=== PATIENT | male | born 1945 | race Caucasian/White ===

== ENCOUNTER 2017-03-31 12:38 | Inpatient (IN) | payer MEDICARE ==
[~2017-03-31] VITALS: Ht 175.3 cm; Wt 80.7 kg
[2017-03-31] VITALS (7 sets, daily range): BP systolic 90–169; BP diastolic 52–82; PULSE 54–86; RESP 18–20; TEMP 98.1–100; O2SAT 94–100
[2017-03-31] MEDS ORDERED: MORPHINE SULFATE 4 MG/ML INJ ONE ×3 (12:46→14:04)
[2017-03-31] MEDS ORDERED: IOHEXOL 350 MG/ML 10 ML VIAL (for RAD DIAG) IVCONTRAST ONE (13:00)
--- NOTE | 2017-03-31 13:02 | RADRPT ---
EXAM DATE/TIME: 03/31/2017 12:38 [facility] COMPARISON: No previous studies available for comparison. INDICATIONS : Trauma alert. MEDICAL HISTORY : None. SURGICAL HISTORY : None. ENCOUNTER: Initial ACUITY: 1 day PAIN SCORE: Non-responsive. LOCATION: Bilateral chest FINDINGS: Examination of the left shoulder demonstrates no evidence of fracture or dislocation.. Bone minerali zation is normal. The acromioclavicular joint is intact. No foreign body is identified. CONCLUSION: No acute disease. Shubham Hooker MD on March 31, 2017 at 12:59 Board Certified Radiologist. This report was verified electronically.
[2017-03-31 13:03] LABS: BASOPHIL # 0.1 TH/MM3 (0-0.2); BASOPHIL % 0.6 % (0.0-2.0); EOSINOPHIL # 0.2 TH/MM3 (0-0.4); EOSINOPHIL % 2.2 % (0.0-4.0); HEMATOCRIT 41.2 % (39.0-51.0); HEMO FLAGS DIFF FINAL; I-STAT POTASSIUM 3.8 MMOL/L (3.5-4.9); LYMPH % 18.1 % (9.0-44.0); MEAN CELL VOLUME 96.7 FL (80.0-100.0); MEAN CORPUSCULAR HEMOGLOBIN 32.6 PG (27.0-34.0); MEAN CORPUSCULAR HGB CONC 33.7 % (32.0-36.0); NEUT % 71.1 % (16.0-70.0); PLATELET COUNT 203 TH/MM3 (150-450); RED BLOOD COUNT 4.26 MIL/MM3 (4.50-5.90); RED CELL DISTRIBUTION WIDTH 12.8 % (11.6-17.2); WHITE BLOOD COUNT 11.3 TH/MM3 (4.0-11.0)
--- NOTE | 2017-03-31 13:03 | RADRPT ---
EXAM DATE/TIME: 03/31/2017 12:38 [facility] COMPARISON: SHOULDER LEFT (1 VW), March 31, 2017, 12:38. INDICATIONS : Trauma alert. MEDICAL HISTORY : None. SURGICAL HISTORY : None. ENCOUNTER: Initial ACUITY: 1 day PAIN SCORE: Non-responsive. LOCATION: Bilateral chest FINDINGS: A single view of the chest demonstrates the lungs to be symmetrically aerated without evidence of mas s, infiltrate or effusion. The cardiomediastinal contours are unremarkable. Degenerative changes are noted involving the right shoulder. CONCLUSION: 1. No acute cardiopulmonary disease. 2. Degenerative changes involving right shoulder. Shubham Hooker MD on March 31, 2017 at 13:00 Board Certified Radiologist. This report was verified electronically.
--- NOTE | 2017-03-31 13:04 | RADRPT ---
EXAM DATE/TIME: 03/31/2017 12:38 [facility] COMPARISON: No previous studies available for comparison. INDICATIONS : Trauma alert. MEDICAL HISTORY : None. SURGICAL HISTORY : None. ENCOUNTER: Initial ACUITY: 1 day PAIN SCORE: Non-responsive. LOCATION: Bilateral chest FINDINGS: There is no acute fracture or dislocation of the bony pelvis. Moderate degenerative changes are noted involving the hip joints bilaterally. Degenerative changes are also noted involving the lower lumbar spine. CONCLUSION: 1. No acute fracture or dislocation. 2. Moderate degenerative change involving the hip joints bilaterally. 3. Degenerative changes throughout the lower lumbar spine. Shubham Hooker MD on March 31, 2017 at 13:01 Board Certified Radiologist. This report was verified electronically.
[2017-03-31 13:10] LABS: APTT (PATIENT) 24.7 SEC (24.3-30.1); INTERNATIONAL NORMALIZED RATIO 1.2 RATIO
--- NOTE | 2017-03-31 13:20 | RADRPT ---
EXAM DATE/TIME: 03/31/2017 12:55 [facility] COMPARISON: No previous studies available for comparison. INDICATIONS : Fall 16 feet. Trauma alert. RADIATION DOSE: 60.16 CTDIvol (mGy) ; Tabletop CT Head MEDICAL HISTORY : Hypertension. SURGICAL HISTORY : ENCOUNTER: Initial ACUITY: 1 day PAIN SCALE: 10/10 LOCATION: cranial posterior TECHNIQUE: Multiple contiguous axial images were obtained of the head. Using automated exposure control and adj ustment of the mA and/or kV according to patient size, radiation dose was kept as low as reasonably a chievable to obtain optimal diagnostic quality images. DICOM format image data is available electro nically for review and comparison. FINDINGS: CEREBRUM: The ventricles are normal for age. No evidence of midline shift, mass lesion, hemorrhage or acute in farction. No extra-axial fluid collections are seen. POSTERIOR FOSSA: The cerebellum and brainstem are intact. The 4th ventricle is midline. The cerebellopontine angle i s unremarkable. EXTRACRANIAL: The visualized portion of the orbits is intact. Mucosal thickening is noted throughout the maxillary, frontal and ethmoid sinuses. SKULL: The calvaria is intact. No evidence of skull fracture. CONCLUSION: 1. No acute intracranial abnormality. 2. Mucosal thickening throughout the maxillary, frontal and ethmoid sinuses. Shubham Hooker MD on March 31, 2017 at 13:16 Board Certified Radiologist. This report was verified electronically.
--- NOTE | 2017-03-31 13:35 | PD ---
HPI Chief Complaint: Trauma (Alert) Time Seen by Provider: 12:47 Travel History International Travel<30 days: No Contact w/Intl Traveler<30days: No Traveled to known affect area: No History of Present Illness HPI Is an elderly man, fall from a ladder up at about 16 feet in the air. Positive LOC. Confused on scene. Complaining of left shoulder, left hip, and some head pain. He is on aspirin and Plavix. Awake and alert but continues to be confused in route. EMS palpated some deformity in his mid thoracic spine. Patient complains of little bit of paresthesias in his left arm. [facility] Past Medical History Narrative Medical CAD, on aspirin and Plavix, history of stent about a year or so ago Hypertension Hypertension: Yes ?: Not Past Surgical History Cardiac Surgery: Yes (STENT PLACED ) Other Surgery: Yes (RIGHT LEG ) Social History Alcohol Use: No (SIX PACK A DAY ) Tobacco Use: No Substance Use: No Allergies-Medications (Allergen,Severity, Reaction): Coded Allergies: No Known Allergies (Unverified , 03/31/17) Review of Systems Except as stated in HPI: all other systems reviewed are Neg Physical Exam Narrative GENERAL: Well-appearing elderly man, full spinal mobilization. SKIN: Focused skin assessment warm/dry. HEAD: Normocephalic. No palpable cephalhematomas or skull fractures. No lacerations. EYES: Pupils equal and round. No scleral icterus. No injection or drainage. ENT: No nasal bleeding or discharge. Mucous membranes pink and moist. NECK: Trachea midline. Cervical collar in place. No palpable step-offs or deformities in the C-spine. CARDIOVASCULAR: Regular rate and rhythm. No murmur appreciated. RESPIRATORY: No accessory muscle use. Clear to auscultation. Breath sounds equal bilaterally. GASTROINTESTINAL: Abdomen soft, non-tender, nondistended. Hepatic and splenic margins not palpable. MUSCULOSKELETAL: No obvious deformities. Pain in the left shoulder. A little bit tenderness over the left scapula. No other palpable deformities in the extremities. Full range of motion all 4 extremities. In the mid to lower thoracic spine there is some palpable contusion and swelling. NEUROLOGICAL: Awake and alert. No obvious cranial nerve deficits. Strength full and equal upper and lower extremities, although the left is difficult to test due to pain. Data Data Last Documented VS Vital Signs Date Time Temp Pulse Resp B/P (MAP) Pulse Ox O2 Delivery O2 Flow Rate FiO2 03/31/17 13:20 100 Room Air 03/31/17 13:15 98.1 86 18 169/82 (111) Orders Orders Morphine Inj (Morphine Inj) (03/31/17 12:46) I-Stat Profile (03/31/17 12:47) I-Stat Creatinine (03/31/17 12:47) Complete Blood Count With Diff (03/31/17 12:47) Prothrombin Time / Inr (Pt) (03/31/17 12:47) Act Partial Throm Time (Ptt) (03/31/17 12:47) Type And Screen (03/31/17 12:47) Chest, Single Ap (03/31/17 12:47) Pelvis, Ap Only (Routine) (03/31/17 12:47) Ct Brain W/O Iv Contrast(Rout) (03/31/17 12:47) Ct Cerv Spine W/O Contrast (03/31/17 12:47) Ct Abd/Pel W Iv Contrast(Rout) (03/31/17 12:47) Ct Thorax/ Chest W Iv Contrast (03/31/17 12:47) Ct Thor Spine W Iv Contrast (03/31/17 12:47) Ct Lumb Spine W Iv Contrast (03/31/17 12:47) Iv Access Insert/Monitor (03/31/17 12:47) Ecg Monitoring (03/31/17 12:47) Oximetry (03/31/17 12:47) Oxygen Administration (03/31/17 12:47) Shoulder, One View (03/31/17 ) Morphine Inj (Morphine Inj) (03/31/17 13:05) Iohexol 350 Inj (Omnipaque 350 Inj) (03/31/17 13:00) Labs Laboratory Tests Test 03/31/17 12:35 White Blood Count 11.3 TH/MM3 Red Blood Count 4.26 MIL/MM3 Hemoglobin 13.9 GM/DL Bedside Hemoglobin 13.3 G/DL Hematocrit 41.2 % Bedside Hematocrit 39.0 % Mean Corpuscular Volume 96.7 FL Mean Corpuscular Hemoglobin 32.6 PG Mean Corpuscular Hemoglobin Concent 33.7 % Red Cell Distribution Width 12.8 % Platelet Count 203 TH/MM3 Mean Platelet Volume 7.1 FL Neutrophils (%) (Auto) 71.1 % Lymphocytes (%) (Auto) 18.1 % Monocytes (%) (Auto) 8.0 % Eosinophils (%) (Auto) 2.2 % Basophils (%) (Auto) 0.6 % Neutrophils # (Auto) 8.0 TH/MM3 Lymphocytes # (Auto) 2.0 TH/MM3 Monocytes # (Auto) 0.9 TH/MM3 Eosinophils # (Auto) 0.2 TH/MM3 Basophils # (Auto) 0.1 TH/MM3 CBC Comment DIFF FINAL Differential Comment Prothrombin Time 12.0 SEC Prothromb Time International Ratio 1.2 RATIO Activated Partial Thromboplast Time 24.7 SEC Bedside Sodium 137 MMOL/L Bedside Potassium 3.8 MMOL/L Bedside Chloride 102 MMOL/L Bedside Blood Urea Nitrogen 15 MG/DL Bedside Creatinine 0.9 MG/DL Bedside Glucose 111 MG/DL [facility] Medical Screen Exam Complete: Yes Emergency Medical Condition: Yes Interpretation(s) Chest x-ray negative. Pelvis x-ray negative Left shoulder x-ray: Negative LABS: CBC unremarkable. Point of care chemistries are unremarkable. Coags are unremarkable. CT head: Negative. Mucosal thickening throughout the maxillary frontal and ethmoid sinuses. CT cervical spine: Acute fractures involving bilateral lamina of C2, as well as posterior spinous processes. C3 C4 C5 and C6. CT chest: 9 mm nodule in the lung bases. L1 compression fracture. CT abdomen and pelvis: L1 compression fracture comminuted fragments along the superior endplate. CT L-spine: CT thoracic spine: Differential Diagnosis Head injury, spinal injury, chest injury, abdominal pelvic injury Narrative Course Medical decision making This 81-year-old man, fall from a height, on aspirin and Plavix with positive LOC, concern for head bleed, back injury where he is deformity in the mid thoracic spine, or other abdominal injury. Looks overall well now. Check labs , CT imaging, reassess. Critical Care Narrative Aggregate critical care time was 40 minutes. Time to perform other separately billable procedures was not included in the critical care time. My time did not include minutes spent treating any other patients simultaneously or on activities that did not directly contribute to the patient's treatment. The services I provided to this patient were to treat and/or prevent clinically significant deterioration that could result in: , disability, worsening neurologic outcome, unrecognized spinal cord compression. I provided critical care services requiring my management, as noted below: Chart data review, documentation time, medication orders and management, vital sign assessments/reviewing monitor data, ordering and reviewing lab tests, ordering and interpreting/reviewing x-rays and diagnostic studies, care of the patient and discussion of the patient with the admitting physicians. Procedures Procedure Narrative Spoke with Dr. Mitchell, spoke with the neurosurgeon. Diagnosis Diagnosis: Primary Impression: Cervical spine fracture Additional Impression: Compression fx, lumbar spine Admitting Physician Requests: Admit Amado Greer MD Mar 31, 2017 13:35
--- NOTE | 2017-03-31 13:43 | RADRPT ---
EXAM DATE/TIME: 03/31/2017 13:03 [facility] COMPARISON: No previous studies available for comparison. INDICATIONS : Fall 16 feet, trauma alert. IV CONTRAST: 78 cc Omnipaque 350 (iohexol) IV ; Cumulative dose for multiple exams. ORAL CONTRAST: No oral contrast ingested. RADIATION DOSE: 18.00 CTDIvol (mGy) ; Combined studies - Thorax/Abdomen/Pelvis MEDICAL HISTORY : Hypertension. SURGICAL HISTORY : ENCOUNTER: Initial ACUITY: 1 day PAIN SCALE: 10/10 LOCATION: abdominal. TECHNIQUE: Volumetric scanning of the abdomen and pelvis was performed. Using automated exposure control and ad justment of the mA and/or kV according to patient size, radiation dose was kept as low as reasonably achievable to obtain optimal diagnostic quality images. DICOM format image data is available electro nically for review and comparison. FINDINGS: LOWER LUNGS: The visualized lower lungs are clear. LIVER: Homogeneous density without lesion. There is no dilation of the biliary tree. No calcified gallston es. SPLEEN: Normal size without lesion. PANCREAS: Within normal limits. KIDNEYS: Normal in size and shape. There is no mass, stone or hydronephrosis. ADRENAL GLANDS: Within normal limits. VASCULAR: There is no aortic aneurysm. BOWEL/MESENTERY: The stomach, small bowel, and colon demonstrate no acute abnormality. There is no free intraperitone al air or fluid. ABDOMINAL WALL: Within normal limits. RETROPERITONEUM: There is no lymphadenopathy. BLADDER: There some questionable wall thickening or trabeculations on multiple images of the bladder correlate for hematuria. REPRODUCTIVE: Within normal limits. INGUINAL: There is no lymphadenopathy or hernia. MUSCULOSKELETAL: There is a compression fracture of the L1 vertebral body. CONCLUSION: L1 compression fracture with comminuted fragments along the superior endplate. Solid unremarkable. So me trabeculations or bladder wall versus thickening correlate for hematuria. Amado Pineda MD on March 31, 2017 at 13:38 Board Certified Radiologist. This report was verified electronically.
--- NOTE | 2017-03-31 13:46 | RADRPT ---
EXAM DATE/TIME: 03/31/2017 12:55 [facility] COMPARISON: No previous studies available for comparison. INDICATIONS : Fall 16 feet, trauma alert. RADIATION DOSE: 21.64 CTDIvol (mGy) MEDICAL HISTORY : Hypertension. SURGICAL HISTORY : ENCOUNTER: Initial ACUITY: 1 day PAIN SCALE: 10/10 LOCATION: neck TECHNIQUE: Volumetric scanning of the cervical spine was performed. Multiplanar reconstructions in the sagittal, coronal and oblique axial planes were performed. Using automated exposure control and adjustment o f the mA and/or kV according to patient size, radiation dose was kept as low as reasonably achievable to obtain optimal diagnostic quality images. DICOM format image data is available electronically f or review and comparison. FINDINGS: There are acute fractures involving the bilateral lamina of C2 as well as the posterior spinous proce sses of C3, C4, C5 and C6. Diffuse cervical spondylosis is noted. There is no acute compression fract ure of the vertebral bodies or prevertebral soft tissue swelling. Severe bilateral foraminal narrowin g is noted at C3-4, C4-5, C5-6 and C6-7. Mild spinal stenosis is noted at C3-4, C4-5 and C5-6. CONCLUSION: 1. Acute fractures involving the bilateral lamina of C2 as well as the posterior spinous processes of C3, C4, C5 and C6. 2. Mild spinal stenoses at C3-4, C4-5 and C5-6. 3. Severe bilateral foraminal narrowing at C3-4, C4-5, C5-6 and C6-7. 4. Diffuse cervical spondylosis. Shubham Hooker MD on March 31, 2017 at 13:38 Board Certified Radiologist. This report was verified electronically.
--- NOTE | 2017-03-31 13:47 | RADRPT ---
EXAM DATE/TIME: 03/31/2017 13:03 [facility] COMPARISON: No previous studies available for comparison. INDICATIONS : Fall 16 feet, trauma alert. IV CONTRAST: 78 cc Omnipaque 350 (iohexol) IV ; Cumulative dose for multiple exams. RADIATION DOSE: 18.00 CTDIvol (mGy) ; Combined studies - Thorax/Abdomen/Pelvis MEDICAL HISTORY : Hypertension. SURGICAL HISTORY : ENCOUNTER: Initial ACUITY: 1 day PAIN SCALE: 10/10 LOCATION: mid back TECHNIQUE: Volumetric scanning of the chest was performed. Using automated exposure control and adjustment of t he mA and/or kV according to patient size, radiation dose was kept as low as reasonably achievable to obtain optimal diagnostic quality images. DICOM format image data is available electronically for review and comparison. Follow-up recommendations for detected pulmonary nodules are based at a minimum on nodule size and pa tient risk factors according to Fleischner Society Guidelines. FINDINGS: LUNGS: There is no consolidation or pneumothorax. 9 mm groundglass nodule right lung base needs to be follow ed. The findings described above include a newly detected solid pulmonary nodule of 8 mm or greater aver age diameter. Guidelines from the Fleischner Society for the follow-up and management of newly detect ed indeterminate pulmonary nodules in persons >34 years old depend on nodule size (average of length and width) and underlying risk factors (including smoking and other risk factors). Please consider t he following recommendations after clinical assessment of risk factors. For nodules >8 mm: In low risk patients, follow-up CT at approximately 3, 9, and 24 months. In high risk patients, dynam ic contrast-enhanced CT, PET, and/or biopsy. on an outpatient basis. PLEURA: There is no pleural thickening or pleural effusion. MEDIASTINUM: The heart and great vessels demonstrate no acute abnormality. There is no mediastinal or hilar lymph adenopathy. Very dense coronary atherosclerotic disease AXILLAE: Within normal limits. No lymphadenopathy. SKELETAL: L1 compression fracture. The rest of the thoracic spine is unremarkable. MISCELLANEOUS: The visualized upper abdominal organs demonstrate no acute abnormality. CONCLUSION: 9 mm groundglass nodule right lung base. Needs followup imaging based on smoking history and risk fac tors. L1 compression fracture which is known. Dense coronary atherosclerotic disease Amado Pineda MD on March 31, 2017 at 13:43 Board Certified Radiologist. This report was verified electronically.
--- NOTE | 2017-03-31 13:54 | RADRPT ---
EXAM DATE/TIME: 03/31/2017 13:03 [facility] COMPARISON: No previous studies available for comparison. INDICATIONS : Fall 16 feet, trauma alert. IV CONTRAST: 78 cc Omnipaque 350 (iohexol) IV ; Cumulative dose for multiple exams. RADIATION DOSE: CTDIvol (mGy) ; Reconstructed from previous dataset, no dose MEDICAL HISTORY : Hypertension. SURGICAL HISTORY : ENCOUNTER: Initial ACUITY: 1 day PAIN SCALE: 10/10 LOCATION: lower back TECHNIQUE: Volumetric scanning of the lumbar spine was performed. Multiplanar reconstructions in the sagittal, coronal and oblique axial planes were performed. Using automated exposure control and adjustment of the mA and/or kV according to patient size, radiation dose was kept as low as reasonably achievable t o obtain optimal diagnostic quality images. DICOM format image data is available electronically for review and comparison. FINDINGS: PARASPINAL SOFT TISSUES: Normal. LUMBAR CORD: Normal. DURAL SAC: Normal. L1-L2: There is a compression fracture of the L1 vertebral body. It is lost a third its original ante rior height measuring 1.9 cm anteriorly. Its 2.8 cm posteriorly. The fracture is comminuted along the superior endplate. The posterior vertebral body margin is intact. There is oblique fracture through the T12 spinous process and a small fracture through the left posterior process of L1. L2-L3: The disc, uncovertebral joints, central canal, foramina, and facets are normal. L3-L4: The disc, uncovertebral joints, central canal, foramina, and facets are normal. L4-L5: The disc, uncovertebral joints, central canal, foramina, and facets are normal. L5-S1: The disc, uncovertebral joints, central canal, foramina, and facets are normal. CONCLUSION: There is a compression fracture of the L1 vertebral body. It has lost a third its original anterior h eight, measuring 1.9 cm anteriorly. It is 2.8 cm posteriorly. The fracture is comminuted along the zhu perior endplate. The posterior vertebral body margin is intact. There is oblique fracture through the T12 spinous process and a small fracture through the left posterior process of L1. Amado Pineda MD on March 31, 2017 at 13:49 Board Certified Radiologist. This report was verified electronically.
--- NOTE | 2017-03-31 14:01 | RADRPT ---
EXAM DATE/TIME: 03/31/2017 13:03 [facility] COMPARISON: CT LUMBAR SPINE W CONTRAST, March 31, 2017, 13:03. INDICATIONS : Fall 16 feet, trauma alert. IV CONTRAST: 78 cc Omnipaque 350 (iohexol) IV RADIATION DOSE: CTDIvol (mGy) ; Reconstructed from previous dataset, no dose MEDICAL HISTORY : Hypertension. SURGICAL HISTORY : ENCOUNTER: Initial ACUITY: 1 day PAIN SCALE: 10/10 LOCATION: mid back TECHNIQUE: Volumetric scanning of the thoracic spine was performed. Multiplanar reconstructions in the sagittal , coronal and oblique axial planes were performed. Using automated exposure control and adjustment o f the mA and/or kV according to patient size, radiation dose was kept as low as reasonably achievable to obtain optimal diagnostic quality images. DICOM format image data is available electronically fo r review and comparison. FINDINGS: There is a known L1 compression fracture. There are large flowing osteophyte throughout the upper and mid thoracic spine. The vertebral bodies of the thoracic spine are in normal alignment without evidence of subluxation. Vertebral body height is maintained. There is an oblique fracture through the spinous process of T12 T1-T2: Normal. T2-T3: The thecal sac has a normal diameter. No evidence of disc bulge or protrusion. T3-T4: The thecal sac has a normal diameter. No evidence of disc bulge or protrusion. T4-T5: The thecal sac has a normal diameter. No evidence of disc bulge or protrusion. T5-T6: The thecal sac has a normal diameter. No evidence of disc bulge or protrusion. T6-T7: The thecal sac has a normal diameter. No evidence of disc bulge or protrusion. T7-T8: The thecal sac has a normal diameter. No evidence of disc bulge or protrusion. T8-T9: The thecal sac has a normal diameter. No evidence of disc bulge or protrusion. T9-T10: The thecal sac has a normal diameter. No evidence of disc bulge or protrusion. T10-T11: The thecal sac has a normal diameter. No evidence of disc bulge or protrusion. T11-T12: The thecal sac has a normal diameter. No evidence of disc bulge or protrusion. T12-L1: The thecal sac has a normal diameter. No evidence of disc bulge or protrusion. CONCLUSION: Compression deformity of L1 with approximately 30 this height loss anteriorly. The fracture extends p osteriorly through the spinous process at T12. There large flowing osteophytes throughout the entire thoracic spine almost DISH. Amado Pineda MD on March 31, 2017 at 13:58 Board Certified Radiologist. This report was verified electronically.
[2017-03-31] MEDS ORDERED: MISCELLANEOUS NURSING INFORMATION XX SCH (15:00)
[2017-03-31] MEDS ORDERED: MORPHINE SULFATE 4 MG/ML INJ IV PUSH PRN (15:00)
[2017-03-31] MEDS ORDERED: ENALAPRILAT 1.25 MG/ML VIAL IV PUSH PRN (15:00)
[2017-03-31] MEDS ORDERED: SODIUM CHLORIDE 0.9% FLUSH 10 ML FLUSH IV FLUSH PRN (15:00)
[2017-03-31] MEDS ORDERED: CHLORHEXIDINE GLUCONATE 2 % 1 PACK (2 CLOTHS) TOP PRN (15:00)
[2017-03-31] MEDS ORDERED: MAGNESIUM HYDROXIDE SUSP 30 ML CUP PO PRN (15:00)
[2017-03-31] MEDS ORDERED: ACETAMINOPHEN/HYDROcodone 325 MG/5 MG TAB PO PRN (15:00)
--- NOTE | 2017-03-31 15:07 | HHI.NSPN ---
History Chief Complaint: Fall from tree Interval History 71y/o male patient who was trying to cutdown a branch on a tree when he fell from the ladder onto his butt. Reports his knees bounced striking his chin and snapping his head backwards. Brought to [facility] for evaluation. Also reports short LOC. Now complains of dizziness, neck and back pain. Denies loss of sensation or inability to move System Review Comments History of CAD and stent placement On ASA and plavix Exam Results Vital Signs Date Time Temp Pulse Resp B/P (MAP) Pulse Ox O2 Delivery O2 Flow Rate FiO2 03/31/17 13:20 100 Room Air 03/31/17 13:15 98.1 86 18 169/82 (111) Physical Examination Alert and awake. Very talkative. Follows commands Oriented x 3. Fluent speech Left handed but feels he is ambidextrous CN II-XII intact Motor 5/5 Sensory intact to touch DTRs UEs Tr KJ 1+ AJ Tr In trauma collar. Tenderness posteriorly at the neck and back Lab, Micro, Other Results CT of brain No acute injury CT of Cspine Fx of lamina if C2. Fx of spinous process C3,4,5,6, CT of LS spine Compression of L1 about 30%. Canal maintained CT of Tspine Deg changes Medical Decision Making Impression and Plan Imp: C spine fractures as detailed LS spine fx as detailed P: Carl Mike collar LS spine brace Total Minutes: 30 Gary Casey MD Mar 31, 2017 15:07
[2017-03-31] MEDS: ACETAMINOPHEN/HYDROcodone 325 MG/5 MG TAB PO PRN (15:30)
[2017-03-31] MEDS: PANTOPRAZOLE SODIUM 40 MG VIAL IVP SCH (15:40)
--- NOTE | 2017-03-31 15:43 | MH ---
cc: ANTWON TAPIA DATE OF ADMISSION: 03/31/2017 HISTORY OF PRESENT ILLNESS: This is a patient who was on a ladder cutting a tree branch approximately 16 feet up and fell onto his butt. He came in as a level II trauma evaluated by the emergency room physician and found to have lumbar spine fracture as well cervical spine fracture. Now the trauma service was requested for admission. The patient complains of neck pain and back pain. He denies shortness of breath. Denied abdominal pain. No paresthesias. He states he did lose consciousness. PAST MEDICAL HISTORY: Past medical history significant for: 1. Coronary artery disease. 2. Hypertension. PAST SURGICAL HISTORY: Significant for cardiac stent placement. MEDICATIONS AT HOME: 1. Aspirin. 2. Plavix. 3. Metoprolol. SOCIAL HISTORY: He does not smoke. He does drink a six pack a day. FAMILY HISTORY: Family history is noncontributory. REVIEW OF SYSTEMS: Review of systems significant for above, all other review negative. PHYSICAL EXAMINATION: GENERAL: On exam, he is lying on a stretcher in no acute distress. HEAD, EYES, EARS, NOSE, THROAT: His pupils are equal and reactive. NECK: Neck is in C-collar. No JVD. LUNGS: Respirations clear. CARDIOVASCULAR: Regular. GASTROINTESTINAL: Soft. Nontender. MUSCULOSKELETAL: No deformities. NEUROLOGIC: Nonfocal. LABORATORY DATA: The patient's hemoglobin is 13, hematocrit 39. RADIOLOGICAL IMAGING: CT of the head negative. CT of the cervical spine shows fracture involving the lamina of C2 and the spinous processes of C3, C4, C5 and C6. CT of the chest shows no acute findings. CT OF THE ABDOMEN AND PELVIS: L1 compression fracture. ASSESSMENT: This is a patient with status post fall with cervical spine and lumbar spine fractures. RECOMMENDATIONS / PLAN: The patient is being admitted to [facility]. Neurosurgery has been consulted. Will leave the cervical collar. Will provide pain management and monitor neurological status. MD CUCO Armendariz/MEGHAN /2:56 PM /3:33 PM
--- NOTE | 2017-03-31 16:18 | MB ---
cc: BENNIE JIMENEZ L DATE OF CONSULTATION 03/31/2017 CHIEF COMPLAINT Fall. HISTORY OF THE PRESENT ILLNESS This is a 71-year-old male patient who was trying to cut a branch from a tree when he fell from the ladder on to his buttocks. He reports that his knees bounced up and struck his chin snapping his neck backwards. He had momentary loss of consciousness. He presents with complaints of neck and back pain to [facility]. He underwent evaluation and because of abnormal x-ray, neurosurgery consultation was placed. PAST MEDICAL HISTORY Reveals: The patient has a history of coronary artery disease and hypertension. MEDICATIONS His medications include: 1. Aspirin. 2. Plavix. ALLERGIES NO KNOWN ALLERGIES. PAST SURGICAL HISTORY Includes: Placement of a cardiac stent. REVIEW OF SYSTEMS Unremarkable except as pertaining to the above history. PHYSICAL EXAMINATION VITAL SIGNS: Blood pressure 169/82, respiratory rate of 18, pulse of 86, temperature of 98.1. Pulse oximetry of 100% on room air. GENERAL: Shows a well-developed, thin male in mild distress. He is in a trauma collar. HEENT: Unremarkable except for pain posteriorly at the level of the neck and placement of the collar. CHEST: Symmetrical. LUNGS: Clear. ABDOMEN: Soft and nontender. EXTREMITIES: Clear. NEUROLOGIC: The patient is alert and awake. He follows commands well. He is oriented times three. Has fluent speech. He is very talkative. Cranial nerves II through XII intact. Motor examination is 5+/5. Sensory is intact to touch. Deep tendon reflexes are trace in the upper extremities. 1+ at the knee jerks and trace at the ankle jerks. IMAGING Review of a CT scan of the brain is unremarkable for injury. CT scan of the cervical spine shows fracture to the lamina of C2 and fracture through the spinous process of C3, 4, [address] scan of the thoracic spine shows degenerative changes. CT scan of the lumbosacral spine shows a compression fracture of L1 of about 30%. Canal is well maintained. IMPRESSION Overall impression is that of cervical spine fracture and lumbar spine fracture. RECOMMENDATIONS At this time place the patient in a [place] J collar for the cervical spine fracture and place a lumbar brace for the L1 fracture. No surgery is immediately indicated at the present time. This has been discussed with the patient and with Dr. Farfan, the trauma surgeon. The patient is going to be admitted to the intensive care unit for observation. MD MOSES Yanes/KK /3:08 PM /3:55 PM HELLEN
[2017-03-31] MEDS ORDERED: PLAV75TA29 PO (16:22)
[2017-03-31] MEDS ORDERED: LISINOPRIL 20 MG TAB PO ONE (16:45)
[2017-03-31] MEDS: MULTIVITAMIN INJ 10 ML, THIAMINE INJ 100 MG, FOLIC ACID INJ 1 MG in SODIUM CHLORID 0.9%... IV SCH (17:12)
[2017-03-31] MEDS: ONDANSETRON HCL 4 MG/2 ML VIAL IV PUSH PRN (18:19)
[2017-04-01] VITALS (18 sets, daily range): BP systolic 94–159; BP diastolic 55–86; PULSE 58–74; RESP 16–20; TEMP 98.1–99.1; O2SAT 95–99
[2017-04-01] MEDS: ACETAMINOPHEN/HYDROcodone 325 MG/5 MG TAB PO PRN ×5 (02:06→23:45)
[2017-04-01] MEDS: CHLORHEXIDINE GLUCONATE 2 % 1 PACK (2 CLOTHS) TOP SCH (03:45)
[2017-04-01 05:15] LABS: AUTOMATED NEUTROPHIL # 6.6 TH/MM3 (1.8-7.7); BASOPHIL % 0.2 % (0.0-2.0); EOSINOPHIL # 0.1 TH/MM3 (0-0.4); EOSINOPHIL % 0.9 % (0.0-4.0); HEMATOCRIT 33.1 % (39.0-51.0); HEMO FLAGS DIFF FINAL; LYMPH % 12.8 % (9.0-44.0); LYMPHOCYTE # 1.2 TH/MM3 (1.0-4.8); MEAN CELL VOLUME 97.9 FL (80.0-100.0); MEAN CORPUSCULAR HEMOGLOBIN 34.3 PG (27.0-34.0); MONO % 13.3 % (0.0-8.0); NEUT % 72.8 % (16.0-70.0); PLATELET COUNT 140 TH/MM3 (150-450); RED BLOOD COUNT 3.38 MIL/MM3 (4.50-5.90); RED CELL DISTRIBUTION WIDTH 12.8 % (11.6-17.2)
[2017-04-01 05:40] LABS: ANION GAP 4 MEQ/L (5-15); AST (GOT) 78 U/L (15-37); BICARBONATE 28.9 MEQ/L (21.0-32.0); BLOOD UREA NITROGEN 18 MG/DL (7-18); CHLORIDE 104 MEQ/L (98-107); GLOMERULAR FILTRATION RATE 76 ML/MIN (>89); POTASSIUM 4.4 MEQ/L (3.5-5.1); SODIUM (NA) 137 MEQ/L (136-145)
[2017-04-01 05:44] LABS: ALKALINE PHOSPHATASE 43 U/L (45-117); ALT (GPT) 50 U/L (12-78); TOTAL BILIRUBIN ADULT 1.4 MG/DL (0.2-1.0)
[2017-04-01] MEDS ORDERED: LACTULOSE SYRUP 20 GM/30 ML CUP PO PRN (07:00)
[2017-04-01] MEDS: POLYETHYLENE GLYCOL 17 GM PKG PO SCH (10:51)
[2017-04-01] MEDS: DOCUSATE SODIUM 50 MG/SENNA 8.6 MG TAB PO SCH ×2 (10:51→21:00)
[2017-04-01] MEDS: METOPROLOL SUCCINATE 25 MG EXTENDED RELEASE TAB PO SCH (10:51)
--- NOTE | 2017-04-01 10:57 | HHI.NSPN ---
(Romeo Moore) History Chief Complaint: Some pain to the neck and low back. (Romeo Moore) Interval History 03/31: This is a 71-year-old male patient who was trying to cut a branch from a tree when he fell from the ladder on to his buttocks. He reports that his knees bounced up and struck his chin snapping his neck backwards. He had momentary loss of consciousness. He presents with complaints of neck and back pain to [facility]. He underwent evaluation and because of abnormal x-ray, neurosurgery consultation was placed. 04/01: The patient is doing well this morning. He does have some pain to the neck and the lower back. He also endorses a headache. He denies any pain, numbness, tingling or weakness to the extremities or any nausea or dizziness. (Romeo Moore) System Review Comments NECK: Some neck pain. MUSCULOSKELETAL: Some low back pain. NEUROLOGICAL: Slight headache. The remainder of the ROS is negative. (Romeo Moore) Exam Results 03/30/17 03/30/17 03/31/17 03/31/17 04/01/17 04/01/17 06:00 18:00 06:00 18:00 06:00 18:00 Intake Total 170 ml 100 ml Output Total 0 ml Balance 170 ml 100 ml Intake Oral 120 ml 100 ml IV Total 50 ml Output Urine Total 0 ml Emesis 0 ml # Bowel Movements 0 Vital Signs Date Time Temp Pulse Resp B/P (MAP) Pulse Ox O2 Delivery O2 Flow Rate FiO2 04/01/17 06:00 63 04/01/17 06:00 63 16 115/55 (75) 98 04/01/17 05:00 62 04/01/17 05:00 62 16 112/62 (79) 95 04/01/17 04:00 98.1 65 16 124/59 (80) 97 04/01/17 04:00 65 04/01/17 03:00 63 16 131/63 (85) 97 04/01/17 03:00 63 04/01/17 03:00 18 04/01/17 02:00 68 16 126/63 (84) 99 04/01/17 02:00 68 04/01/17 01:00 64 16 104/55 (71) 97 04/01/17 01:00 64 04/01/17 00:00 99.1 64 16 94/56 (69) 98 04/01/17 00:00 64 03/31/17 23:00 62 03/31/17 23:00 62 18 90/52 (65) 95 03/31/17 22:00 64 03/31/17 22:00 64 18 91/54 (66) 94 03/31/17 21:00 54 18 110/57 (74) 94 03/31/17 21:00 54 03/31/17 20:00 64 03/31/17 20:00 Room Air 03/31/17 20:00 64 18 104/58 (73) 99 03/31/17 19:00 65 03/31/17 19:00 100.0 65 18 112/63 (79) 96 03/31/17 17:18 20 03/31/17 17:00 98.2 68 20 116/70 (85) 95 03/31/17 16:00 100 Room Air 03/31/17 13:20 100 Room Air 03/31/17 13:15 98.1 86 18 169/82 (111) 100 (Romeo Moore) Physical Examination GENERAL: Awake & alert, readily interacts, normal affect, no distress apparent. HEENT: Normocephalic, atraumatic. PERRLA 2 mm brisk, EOMI. No otorrhea or rhinorrhea. MMM & pink, tongue midline to protrusion. NECK: Hard cervical collar in place. Midline cervical spine NTTP. No JVD. Trachea midline. MUSCULOSKELETAL: Thoracolumbar spine TTP at the thoracolumbar junction. MORALES w/o difficulty. Extremities NTTP. No evident clubbing or deformity. NEUROLOGICAL: AAOX3. Speech clear & appropriate. Follows simple commands. CN I-XII grossly intact. Sensation to light touch intact to all extremities. Motor strength is 5/5 to all major flexion & extension muscle groups and hand intrinsics & extrinsics. (Romeo Moore) Lab, Micro, Other Results Recent Impressions Thoracic Spine CT 03/31/171246 Signed Impressions: Service Date/Time: Friday, March 31, 2017 13:03 - CONCLUSION: Compression deformity of L1 with approximately 30 this height loss anteriorly. The fracture extends posteriorly through the spinous process at T12. There large flowing osteophytes throughout the entire thoracic spine almost DISH. Amado Pineda MD Pelvis X-Ray 03/31/171246 Signed Impressions: Service Date/Time: Friday, March 31, 2017 12:38 - CONCLUSION: 1. No acute fracture or dislocation. 2. Moderate degenerative change involving the hip joints bilaterally. 3. Degenerative changes throughout the lower lumbar spine. Shubham Hooker MD Lumbar Spine CT 03/31/171246 Signed Impressions: Service Date/Time: Friday, March 31, 2017 13:03 - CONCLUSION: Amado Pineda MD Head CT 03/31/171246 Signed Impressions: Service Date/Time: Friday, March 31, 2017 12:55 - CONCLUSION: 1. No acute intracranial abnormality. 2. Mucosal thickening throughout the maxillary, frontal and ethmoid sinuses. Shubham Hooker MD Chest X-Ray 03/31/171246 Signed Impressions: Service Date/Time: Friday, March 31, 2017 12:38 - CONCLUSION: 1. No acute cardiopulmonary disease. 2. Degenerative changes involving right shoulder. Shubham Hooker MD Chest CT 03/31/171246 Signed Impressions: Service Date/Time: Friday, March 31, 2017 13:03 - CONCLUSION: 9 mm groundglass nodule right lung base. Needs followup imaging based on smoking history and risk factors. L1 compression fracture which is known. Dense coronary atherosclerotic disease Amado Pineda MD Cervical Spine CT 03/31/171246 Signed Impressions: Service Date/Time: Friday, March 31, 2017 12:55 - CONCLUSION: 1. Acute fractures involving the bilateral lamina of C2 as well as the posterior spinous processes of C3, C4, C5 and C6. 2. Mild spinal stenoses at C3-4, C4-5 and C5- 6. 3. Severe bilateral foraminal narrowing at C3-4, C4-5, C5-6 and C6-7. 4. Diffuse cervical spondylosis. Shubham Hooker MD Abdomen/Pelvis CT 03/31/17 1247 Signed Impressions: Service Date/Time: Friday, March 31, 2017 13:03 - CONCLUSION: L1 compression fracture with comminuted fragments along the superior endplate. Solid unremarkable. Some trabeculations or bladder wall versus thickening correlate for hematuria. Amado Pineda MD Shoulder X-Ray 03/31/17 0000 Signed Impressions: Service Date/Time: Friday, March 31, 2017 12:38 - CONCLUSION: No acute disease. Shubham Hooker MD Laboratory Tests Test 03/31/17 12:35 03/31/17 17:05 04/01/17 04:45 White Blood Count 11.3 TH/MM3 9.0 TH/MM3 Red Blood Count 4.26 MIL/MM3 3.38 MIL/MM3 Hemoglobin 13.9 GM/DL 11.6 GM/DL Bedside Hemoglobin 13.3 G/DL Hematocrit 41.2 % 33.1 % Bedside Hematocrit 39.0 % Mean Corpuscular Volume 96.7 FL 97.9 FL Mean Corpuscular Hemoglobin 32.6 PG 34.3 PG Mean Corpuscular Hemoglobin Concent 33.7 % 35.0 % Red Cell Distribution Width 12.8 % 12.8 % Platelet Count 203 TH/MM3 140 TH/MM3 Mean Platelet Volume 7.1 FL 7.4 FL Neutrophils (%) (Auto) 71.1 % 72.8 % Lymphocytes (%) (Auto) 18.1 % 12.8 % Monocytes (%) (Auto) 8.0 % 13.3 % Eosinophils (%) (Auto) 2.2 % 0.9 % Basophils (%) (Auto) 0.6 % 0.2 % Neutrophils # (Auto) 8.0 TH/MM3 6.6 TH/MM3 Lymphocytes # (Auto) 2.0 TH/MM3 1.2 TH/MM3 Monocytes # (Auto) 0.9 TH/MM3 1.2 TH/MM3 Eosinophils # (Auto) 0.2 TH/MM3 0.1 TH/MM3 Basophils # (Auto) 0.1 TH/MM3 0.0 TH/MM3 CBC Comment DIFF FINAL DIFF FINAL Differential Comment Prothrombin Time 12.0 SEC Prothromb Time International Ratio 1.2 RATIO Activated Partial Thromboplast Time 24.7 SEC Bedside Sodium 137 MMOL/L Bedside Potassium 3.8 MMOL/L Bedside Chloride 102 MMOL/L Bedside Blood Urea Nitrogen 15 MG/DL Bedside Creatinine 0.9 MG/DL Bedside Glucose 111 MG/DL Nasal Screen MRSA (PCR) MRSA NOT DETECTED Blood Urea Nitrogen 18 MG/DL Creatinine 0.87 MG/DL Random Glucose 117 MG/DL Total Protein 6.5 GM/DL Albumin 3.1 GM/DL Calcium Level 8.4 MG/DL Alkaline Phosphatase 43 U/L Aspartate Amino Transf (AST/SGOT) 78 U/L Alanine Aminotransferase (ALT/SGPT) 50 U/L Total Bilirubin 1.4 MG/DL Sodium Level 137 MEQ/L Potassium Level 4.4 MEQ/L Chloride Level 104 MEQ/L Carbon Dioxide Level 28.9 MEQ/L Anion Gap 4 MEQ/L Estimat Glomerular Filtration Rate 76 ML/MIN (Romeo Moore) Medical Decision Making Impression and Plan Impression: 1.) C2 lamina fracture 2.) C3, 4, 5 & 6 spinous process fractures 3.) L1 compression fracture, approximately 30%, canal is well maintained The patient is doing well this morning when seen, minimal main, neurologically intact. Patient does indicate he wants to avoid surgery if at all possible. Plan: Primary management per Trauma [employer]. [place] J cervical collar at all times. TLSO brace when OOB. Patient may mobilise from Neurosurgery's perspective once he has the [place] J & TLSO brace. PT/OT eval & tx. At present surgery not indicate. (Romeo Moore) Total Minutes: 30 (Romeo Moore) Attending Statement The exam, history, and the medical decision-making described in the above note were completed with the assistance of the mid-level provider. I reviewed and agree with the findings presented. I attest that I had a [id number] encounter with the patient on the same day, and personally performed and documented my assessment and findings in the medical record. The patient's images have been reviewed with him today. CT scan cervical spine reveals C2 through C6 spinous process fractures with questionable hairline left C2 lateral mass fracture. There is also questionable left C6 nondisplaced facet fracture. The patient has extensive calcification of the anterior longitudinal ligament consistent with ankylosing spondylitis at the T3 through T12 levels. There is a 25% L1 compression fracture without retropulsion with a nondisplaced T12 spinous process fracture. I advised the patient that conservative treatment is recommended initially for the multiple spine fractures. He is in agreement with this. He understands the risk of progressive fracture or subluxation with potential for neurologic injury. He is wearing the cervical collar and will utilize CT LSO brace when out of bed with physical therapy. He is stable for transfer to a regular floor. Discussed with nursing staff. (Geronimo Tavarez MD) Romeo Moore Apr 01, 2017 10:57 Geronimo Tavarez MD Apr 01, 2017 20:14
--- NOTE | 2017-04-01 11:30 | PD.HHIRBSE ---
Patient History Record/History Review Reason for Referral: The patient is a 71 year old right handed male status post traumatic injury sustained on 03/31/2017. This patient fell from a ladder. On admission, he was determined to have lumbar spine fracture but no TBI sequelae. He has a history of EtOH dependence. He is referred for baseline neurobehavioral status examination per trauma protocol to assess cognitive, behavioral and emotional aspects of the injury and to provide treatment recommendations. Neuropsych Precautions: EtOH withdrawal. Past Surgical/Medical History Past Surgery: Yes Major surgery in last 100 days: Unknown Hx Anesthesia Reactions: No Hx Orthopedic Surgery: No Hx Cardiac Surgery: Yes (Stent) Hx of Neuro Prob: No Hx of Musculoskeletal Pro: No Hx of Cardiovascular Prob: Yes (CAD) Hypertension (High Blood Press: Yes Hx of Respiratory Problem: No Hx of GI Problems: No Hx of Problems: No Hx Genital Problems: No Hx of Immuno Disor: No Hx of Endocrine Problems: No Hx Thyroid Disease: No Hx Diabetes: No Does Patient Currently Take Gl: No Diabetic Diagnosed 3 Months Or: No Hx of Eye Probl: No Hx of Hearing or Ear Problems: No Hx Dental Problems: No Hx Psychiatric Problems: No Hx Anxiety: No Hx Depression: No Hx Blood Dyscrasias: No Hx Sickle Cell Disease: No Hx Thrombocytopenia: No Hx Hemophilia: No Hx of Heparin Induced Thr: No Hx of MDRO: No Hx of MRSA: No Hx of VRE: No Hx of CDIFF: No Hx of Tuberculosis: No Hx Chicken Pox: No If No, Have You Been Exposed W: No Hx Measles: No Hx of Body/Medical Devices: No Hx Pacemaker: No Hx Internal Defibrillator: No Central Line/Ports (Type): No Hx Joint Replacement: No Insulin Pump: No Hx Arteriovenous Shunt: No Hx Dental Implants: No Hx Eye Prosthesis: No Genitourinary Device: No Genitourinary Ostomy: No Gastrointestinal Ostomy: No Blood Transfusion History Will receive Blood /Blood prod: Yes Hx Blood Transfusions: No Hx Blood Transfusion Reaction: No Medication Active Medications Acetaminophen/ Hydrocodone Bitart ([place] 5-325 Mg) 1 tab Q4H PRN PO; Start at 15:00 Acetaminophen/ Hydrocodone Bitart ([place] 5-325 Mg) 2 tab Q4H PRN PO Last administered on 04/01/17t 06:11; Admin Dose 2 TAB; Start 03/31/17 at 15:00 Chlordiazepoxide (Librium) 25 mg Q6HR PRN PO; Start 04/01/17 at 09:30 Chlorhexidine Gluconate (Chlorhexidine 2% Cloth) 3 pack UNSCH PRN TOP; Start 03/31/17 at 15:00 Chlorhexidine Gluconate (Chlorhexidine 2% Cloth) 3 pack Taper DAILY@04 TOP; Start 04/01/17 at 04:00; Stop 03/28/18 at 03:59 Enalaprilat (Vasotec Inj) 1.25 mg Q8H PRN IV PUSH; Start 03/31/17 at 15:00 Iohexol (Omnipaque 350 Inj) 78 ml STK-MED ONCE IVCONTRAST Last administered on 03/31/17 13:00; Admin Dose 78 ML; Start 03/31/17 at 13:00; Stop 03/31/17 at 13:45; Status DC Lactulose (Lactulose Liq) 30 ml DAILY PRN PO; Start 04/01/17 at 07:00 Lisinopril (Prinivil) 30 mg ONCE ONCE PO; Start 03/31/17 at 16:45; Stop 03/31 at 16:46; Status UNV Magnesium Hydroxide (Milk Of Magnesia Liq) 30 ml Q6H PRN PO; Start 03/31/17 at 15:00 Metoprolol Succinate (Toprol Xl) 25 mg DAILY PO Last administered on 04/01/17t 10:51; Admin Dose 25 MG; Start 04/01/17 at 09:30 Miscellaneous Information 1 [id number] XX; Start 03/31/17 at 15:00 Morphine Sulfate (Morphine Inj) 3 mg Q3H PRN IV PUSH Last administered on 03/31 17:13; Admin Dose 3 MG; Start 03/31/17 at 15:00; Stop 04/01/17 at 09:44 ; Status DC Morphine Sulfate (Morphine Inj) 3 mg Q3H PRN IV PUSH; Start 04/01/17 at 10:00 Morphine Sulfate (Morphine Inj) 4 mg STK-MED ONCE .ROUTE; Start 03/31/17 at 12: 46; Stop 03/31/17 at 12:47; Status DC Morphine Sulfate (Morphine Inj) 4 mg STK-MED ONCE .ROUTE; Start 03/31/17 at 13: 05; Stop 03/31/17 at 13:06; Status DC Morphine Sulfate (Morphine Inj) 4 mg STK-MED ONCE .ROUTE Last administered on 14:09; Admin Dose 4 MG; Start 03/31/17 at 14:04; Stop 03/31/17 at 14: 05; Status DC Multivitamins 10 ml/Thiamine HCl 100 mg/Folic Acid 1 mg/Sodium Chloride 511.2 ml @ 125 mls/hr Q24H IV Last administered on 03/31/17 17:12; Admin Dose 125 MLS/HR; Start 03/31/17 at 17:00; Stop 04/02/17 at 21:06 Ondansetron HCl (Zofran Inj) 4 mg Q6H PRN IV PUSH Last administered on 18:19; Admin Dose 4 MG; Start 03/31/17 at 15:00 Pantoprazole Sodium (Protonix Inj) 40 mg Q24H IVP Last administered on 15:40; Admin Dose 40 MG; Start 03/31/17 at 16:00 Polyethylene Glycol (Miralax) 17 gm DAILY PO Last administered on 04/01/17 10: 51; Admin Dose 17 GM; Start 04/01/17 at 09:00 Senna/Docusate Sodium (Erica-Colace) 1 tab BID PO Last administered on 10:51; Admin Dose 1 TAB; Start 04/01/17 at 09:00 Sodium Chloride (NS Flush) 2 ml UNSCH PRN IV FLUSH; Start 03/31/17 at 15:00 Mental Status Assessment Orientation: oriented to Self, oriented to Place, oriented to Time, oriented to Situation Mental Status: WFL: Thought processing, Language/Interactions, Attention, Learning/Memory, Problem-Solving, Visuospatial/Construction, Self-regulation, Other Observation The patient is alert and oriented to person, place, time and circumstances surrounding the reason for hospitalization. In terms of attention skills, the patient was able to remain on task and remember basic and complex instructions. In terms of memory functioning, the patient was able to demonstrate adequate carryover of information. The patient initiated spontaneous conversation. Speech was characterized by adequate prosody, grammar , articulation, volume and rate. Basic naming skills were intact. Language repetition skills were intact. The patients comprehensions for basic one- and two-stage commands were intact. Basic verbal abstraction and problem-solving skills were intact. The patient appears to posses adequate insight and awareness into their situation and within the limits of this brief evaluation, adequate basic judgment. Impression Baseline cognition. Adjustment/Coping Assessment Adjustment/Coping: None: Depression, Anxiety, Awareness, Insight Observation The patients thought content was free from suicidal, homicidal or paranoid ideation, and the patients thought processes were logical and goal-directed. The patients mood was euthymic, and the affect was stable and appropriate. LTG Status: Deferred STG Status: Deferred Team Members: Neuropsychologist Behavior Assessment Agitation: None Treatment Engagement: Average Observation Behaviorally, the patient demonstrated no signs of agitation, impulsivity or disinhibition. There was no remarkable evidence of a formal thought disorder or psychosis. LTG - Status: Deferred STG Status: Deferred Team Members: Neuropsychologist Diagnosis/Discharge Plan Impression This is a 71 year old man s/p traumatic injury 2T fall on 03/31/2017. From a neurobehavioral perspective, he is presently at baseline. The concern is development of EtOH withdrawal in the next several day for which trauma team consensus is to start Librium 25 q6H PRN. Diagnosis: (1) Compression fx, lumbar spine Status: Acute (2) Cervical spine fracture Status: Acute Maximizing acute care outcome It is recommended that the patient be monitored for emergent behavioral impulsivity as the medical condition evolves. This patients neuropathological challenges may limit his rehabilitation potential going forward, and these challenges will require specialized therapeutic skills to maximize outcome. At this point in the recovery process, the patient does have cognitive capacity as the patient is able to understand a situation and its likely consequences, and he is able to manipulate information rationally. Cognitive capacity will be assessed throughout the recovery process. Discharge Planning Anticipated Problems Ongoing areas of concern will include behavioral impulsivity, lack of insight and judgment, which is expected to improve with time and treatment. Presently , the patient is awake, alert and following commands. Treatment Plan This clinician will continue to follow with you throughout the course of this patients acute care treatment, and I will be available to meet with the patient s family/support system to facilitate their understanding and the ongoing care of their family member. The goals of neuropsychological intervention shall be both educational and supportive to the family/support system as is deemed clinically appropriate. Discharge Needs To be determined. Thank you Thank you for the opportunity to assist in this patients care. Skinny Ramsay, Ph.D., ABPP Board Certified in Clinical Neuropsychology [place] [employer] [place] Licensed Psychologist #[id number] Skinny Ramsay PhD Apr 01, 2017 11:30
--- NOTE | 2017-04-01 12:05 | RADRPT ---
EXAM DATE/TIME: 04/01/2017 09:41 [facility] COMPARISON: No previous studies available for comparison. INDICATIONS : Trauma. MEDICAL HISTORY : CAD. Hypertension. SURGICAL HISTORY : Coronary artery stent. ENCOUNTER: Initial ACUITY: 1 day PAIN SCORE: 2/10 LOCATION: Bilateral neck PEAK SYSTOLIC VELOCITIES (cm/sec): ICA/CCA RATIO: Right: 1.0 Left: 0.9 ICA: Right: 85 Left: 88 CCA: Right: 83 Left: 95 ECA: Right: 116 Left: 94 VERTEBRAL: Right: 77 antegrade Left: 59 antegrade Elevated flow velocities and ICA/CCA ratios have been found to correlate with increased degrees of vessel stenosis, calculated as percentage of diameter relative to a normal segment of distal ICA/CCA FINDINGS: RIGHT CAROTID: There is no evidence for a hemodynamically significant carotid stenosis. Minimal int imal hyperplasia is present with scattered calcific plaque. LEFT CAROTID: There is no evidence for a hemodynamically significant carotid stenosis. Minimal inti mal hyperplasia is present with scattered calcific plaque. VERTEBRAL ARTERIES: Flow is antegrade in both vertebral arteries. MISCELLANEOUS: There are no ancillary masses or adenopathy. CONCLUSION: Negative examination for a hemodynamically significant carotid stenosis. Scattered calc ific plaque is evident. Board Certified Radiologist. This report was verified electronically.
--- NOTE | 2017-04-01 13:49 | HHI.CCPN ---
Subjective Brief History 71-year-old male stenting on the ladder cutting a branch that had them in the face so he fell backwards. Transferred as a trauma alert to [facility] and resuscitated. On arrival patient was awake and alert complaining but some neck pain Full workup completed and final injuries include Acute fractures involving the bilateral lamina of C2 as well as the posterior spinous processes of C3, C4, C5 and C6. C-collar was placed and patient was evaluated by neurosurgery 24 Hour Review/Hospital Course Patient awake alert neurologically fully intact Hemodynamically patient is intact and in sinus rhythm with occasional sinus arrhythmia. At home patient is on Toprol-XL and cessation off beta blockers might have brought on some arrhythmias so we will resumed his before patient goes into A. fib Bilateral breath sounds Abdomen soft active bowel sounds Extremities normal with good peripheral pulses no vascular deficit Neurologically patient is motoric symmetric Objective Vital Signs Date Time Temp Pulse Resp B/P (MAP) Pulse Ox O2 Delivery O2 Flow Rate FiO2 04/01/17 12:00 58 04/01/17 08:00 98.7 17 131/66 (87) 97 04/01/17 07:00 Room Air Intake and Output 04/01/17 04/01/17 04/02/17 08:00 16:00 00:00 Output Total 350 ml Balance -350 ml Result Diagram: 04/01/17 0445 04/01/17 0445 Imaging Last 24 hours Impressions Carotid Artery Ultrasound 04/01/17 0000 Signed Impressions: Service Date/Time: Saturday, April 01, 2017 09:41 - CONCLUSION: Negative examination for a hemodynamically significant carotid stenosis. Scattered calcific plaque is evident. Board Certified Radiologist. This report was verified electronically. MD Exam [employer] Patient awake alert neurologically fully intact Neurologically patient is motoric symmetric Hemodynamic/Cardiac Hemodynamically patient is intact and in sinus rhythm with occasional sinus arrhythmia. At home patient is on Toprol-XL and cessation off beta blockers might have brought on some arrhythmias so we will resumed his before patient goes into A. fib Bilateral breath sounds Abdomen soft active bowel sounds Extremities normal with good peripheral pulses no vascular deficit Abdomen/GI Nutrition Will resume regular diet Assessment and Plan Attestation Transfer patient to floor Critical care 35 minutes Nancy Ozuna MD Apr 01, 2017 13:49
--- NOTE | 2017-04-01 16:30 | EKG ---
Date Performed: 04/01/2017 Time Performed: 10:58:01 PTAGE: 71 years EKG: Sinus rhythm WITH MARKED SINUS ARRHYTHMIA BORDERLINE ECG NO PREVIOUS TRACING DOCTOR: Heydi Rutherford Interpretating Date/Time 04/01/2017 16:28:13
[2017-04-01] MEDS: PANTOPRAZOLE SODIUM 40 MG VIAL IVP SCH (17:15)
[2017-04-01] MEDS: MULTIVITAMIN INJ 10 ML, THIAMINE INJ 100 MG, FOLIC ACID INJ 1 MG in SODIUM CHLORID 0.9%... IV SCH (18:51)
[2017-04-01] MEDS: chlordiazePOXIDE 25 MG CAP PO PRN (19:23)
[2017-04-01] MEDS: MORPHINE SULFATE 2 MG/ML INJ IV PUSH PRN (21:27)
[2017-04-02] VITALS (15 sets, daily range): BP systolic 98–159; BP diastolic 56–79; PULSE 61–87; RESP 15–23; TEMP 98.8–99.8; O2SAT 95–99
[2017-04-02] MEDS: CHLORHEXIDINE GLUCONATE 2 % 1 PACK (2 CLOTHS) TOP SCH (03:00)
[2017-04-02] MEDS: ACETAMINOPHEN/HYDROcodone 325 MG/5 MG TAB PO PRN ×2 (06:07→23:08)
[2017-04-02 06:24] LABS: AUTOMATED NEUTROPHIL # 4.8 TH/MM3 (1.8-7.7); BASOPHIL % 0.2 % (0.0-2.0); EOSINOPHIL # 0.3 TH/MM3 (0-0.4); EOSINOPHIL % 4.2 % (0.0-4.0); HEMATOCRIT 31.6 % (39.0-51.0); HEMO FLAGS DIFF FINAL; LYMPH % 14.6 % (9.0-44.0); MEAN CELL VOLUME 97.4 FL (80.0-100.0); MEAN CORPUSCULAR HEMOGLOBIN 33.7 PG (27.0-34.0); MEAN CORPUSCULAR HGB CONC 34.6 % (32.0-36.0); MONO % 12.7 % (0.0-8.0); NEUT % 68.3 % (16.0-70.0); PLATELET COUNT 119 TH/MM3 (150-450); RED BLOOD COUNT 3.24 MIL/MM3 (4.50-5.90); RED CELL DISTRIBUTION WIDTH 12.8 % (11.6-17.2)
[2017-04-02] MEDS: MORPHINE SULFATE 2 MG/ML INJ IV PUSH PRN ×2 (06:49→20:56)
[2017-04-02 06:56] LABS: BICARBONATE 30.1 MEQ/L (21.0-32.0); POTASSIUM 4.5 MEQ/L (3.5-5.1)
--- NOTE | 2017-04-02 08:20 | HHI.PR ---
Neuropsych Behavior Behavior: Intact: Coping/Acceptance, Cooperative w/ Treatment, Motivation, Mild : Impulsive/Agitated Cognitive Cognitive: Intact: Cognitive, Attention/Concentration, Confused/Orientation, Insight/Awareness, Judgement/Problem-Solving, Memory Psychosocial Psychosocial: Intact: Psychosocial, Family/Other Adjustment, Realistic Expectation, Unable to Asses: Self-Esteem/Confidence Progress Notes/Response to Tx Contents of Sessions: Adjustment, Level of Consciousness Time with Patient: 15 minutes Premorbid psychological status Premorbid Cognitive, Emotional and Behavioral Status: Stable. The patient is retired. The patient has no prior psychiatric difficulties, as described above. Substance abuse history includes alcohol dependence. Behavioral Reactions of Patient and Family/Support System: Stable. The patients family is experiencing ongoing issues of adjustment given the nature of the injury, and this aspect of recovery will require ongoing monitoring. Emotional/Behavioral Status of Patient and Family/Support System: Stable. Pertinent issues, if appropriate to this patients clinical care, are described in detail above. Maximizing acute care outcome It is recommended that the patient be monitored for emergent behavioral impulsivity as the medical condition evolves particularly as it relates to alcohol withdrawal. This patients neuropathological challenges may limit his rehabilitation potential going forward, and these challenges will require specialized therapeutic skills to maximize outcome. At this point in the recovery process, the patient does have cognitive capacity as the patient is able to understand a situation and its likely consequences, and he is able to manipulate information rationally. Cognitive capacity will be assessed throughout the recovery process. Anticipated Problems Ongoing areas of concern will include behavioral impulsivity, lack of insight and judgment, which is expected to improve with time and treatment. Presently , the patient is awake, alert and following commands. Treatment Plan This clinician will continue to follow with you throughout the course of this patients acute care treatment, and I will be available to meet with the patient s family/support system to facilitate their understanding and the ongoing care of their family member. The goals of neuropsychological intervention shall be both educational and supportive to the family/support system as is deemed clinically appropriate. Impression This is a 71 year old man s/p traumatic injury 2T fall on 03/31/2017. From a neurobehavioral perspective, he is presently at baseline. The concern is development of EtOH withdrawal in the next several day for which trauma team consensus is to start Librium 25 q6H PRN. Diagnosis: (1) Compression fx, lumbar spine Status: Acute (2) Cervical spine fracture Status: Acute (3) Alcohol dependence in controlled environment Progress Note Narrative Ongoing follow-up of patient seen during daily trauma rounds. This is day 3 post injury. The patient is neurologically intact, alert, oriented and following commands. He has a PRN Librium 25 q6H for alcohol withdrawal ( patient stated yesterday that he drinks 6+ beers per day), and in fact he required Librium yesterday evening. This situation will continue to be monitored over the next several days. He has no brain related pathology 2T his trauma . I will continue to follow. Skinny Ramsay PhD Apr 02, 2017 8:20 am
[2017-04-02] MEDS: DOCUSATE SODIUM 50 MG/SENNA 8.6 MG TAB PO SCH ×2 (09:42→20:56)
[2017-04-02] MEDS: METOPROLOL SUCCINATE 25 MG EXTENDED RELEASE TAB PO SCH (09:42)
[2017-04-02] MEDS: ONDANSETRON HCL 4 MG/2 ML VIAL IV PUSH PRN (09:42)
[2017-04-02] MEDS: POLYETHYLENE GLYCOL 17 GM PKG PO SCH (09:42)
--- NOTE | 2017-04-02 09:59 | HHI.NSPN ---
(Romeo Moore) History Chief Complaint: Hurting worse today than yesterday. (Romeo Moore) Interval History 03/31: This is a 71-year-old male patient who was trying to cut a branch from a tree when he fell from the ladder on to his buttocks. He reports that his knees bounced up and struck his chin snapping his neck backwards. He had momentary loss of consciousness. He presents with complaints of neck and back pain to [facility]. He underwent evaluation and because of abnormal x-ray, neurosurgery consultation was placed. 04/01: The patient is doing well this morning. He does have some pain to the neck and the lower back. He also endorses a headache. He denies any pain, numbness, tingling or weakness to the extremities or any nausea or dizziness. 04/02: When seen the patient is awake and sitting in the chair talking with a visitor. He states that he is hurting worse today than yesterday which he relates to having been in bed the past three days. He continues to have pain to the neck and back and states the has pain to the sternum which may be fractured. He does have a slight headache. He complains of nausea after drinking the orange juice with his breakfast tray. (Romeo Moore) System Review Comments GENERAL: Hurting all over. NECK: Neck pain. GASTROINTESTINAL: Nausea. MUSCULOSKELETAL: Back pain. Some pain to sternum which may be fractured. NEUROLOGICAL: Slight headache. The remainder of the ROS is negative. (Romeo Moore) Exam Results 03/31/17 03/31/17 04/01/17 04/01/17 04/02/17 04/02/17 06:00 18:00 06:00 18:00 06:00 18:00 Intake Total 170 ml 100 ml 511.2 ml 300 ml Output Total 0 ml 1200 ml 300 ml Balance 170 ml 100 ml -688.8 ml 0 ml Intake Oral 120 ml 100 ml 300 ml IV Total 50 ml 511.2 ml Output Urine Total 0 ml 1200 ml 300 ml Emesis 0 ml 0 ml # Bowel Movements 0 0 0 Vital Signs Date Time Temp Pulse Resp B/P (MAP) Pulse Ox O2 Delivery O2 Flow Rate FiO2 04/02/17 07:00 100 Room Air 04/02/17 06:56 20 04/02/17 06:50 20 04/02/17 06:00 62 04/02/17 05:00 62 04/02/17 05:00 62 16 126/62 (83) 97 04/02/17 04:00 61 04/02/17 04:00 99.0 61 16 107/63 (78) 96 04/02/17 03:00 63 04/02/17 03:00 63 16 110/63 (79) 96 04/02/17 02:00 66 04/02/17 02:00 66 16 112/61 (78) 97 04/02/17 01:00 68 04/02/17 01:00 68 16 98/58 (71) 95 04/02/17 00:00 64 04/02/17 00:00 99.0 64 16 109/57 (74) 96 04/01/17 23:00 71 04/01/17 23:00 71 20 123/60 (81) 95 04/01/17 22:00 70 04/01/17 22:00 70 20 107/63 (78) 97 04/01/17 21:00 72 04/01/17 21:00 72 20 126/66 (86) 97 04/01/17 20:00 Room Air 04/01/17 20:00 68 20 148/77 (100) 95 04/01/17 20:00 68 04/01/17 19:00 98.7 72 20 136/86 (103) 98 04/01/17 19:00 72 04/01/17 18:00 74 04/01/17 16:00 70 04/01/17 16:00 98.7 70 19 153/79 (103) 98 04/01/17 14:00 58 04/01/17 12:00 58 04/01/17 12:00 98.5 58 19 159/78 (105) 95 04/01/17 10:00 66 04/01/17 08:00 98.7 62 17 131/66 (87) 97 04/01/17 08:00 62 04/01/17 07:00 98 Room Air 04/01/17 06:00 63 04/01/17 06:00 63 16 115/55 (75) 98 04/01/17 05:00 62 04/01/17 05:00 62 16 112/62 (79) 95 04/01/17 04:00 98.1 65 16 124/59 (80) 97 04/01/17 04:00 65 04/01/17 03:00 63 16 131/63 (85) 97 04/01/17 03:00 63 04/01/17 02:00 68 16 126/63 (84) 99 04/01/17 02:00 68 04/01/17 01:00 64 16 104/55 (71) 97 04/01/17 01:00 64 04/01/17 00:00 99.1 64 16 94/56 (69) 98 04/01/17 00:00 64 03/31/17 23:00 62 03/31/17 23:00 62 18 90/52 (65) 95 03/31/17 22:00 64 03/31/17 22:00 64 18 91/54 (66) 94 03/31/17 21:00 54 18 110/57 (74) 94 03/31/17 21:00 54 03/31/17 20:00 64 03/31/17 20:00 Room Air 03/31/17 20:00 64 18 104/58 (73) 99 03/31/17 19:00 65 03/31/17 19:00 100.0 65 18 112/63 (79) 96 03/31/17 17:18 20 03/31/17 17:00 98.2 68 20 116/70 (85) 95 03/31/17 16:00 100 Room Air 03/31/17 13:20 100 Room Air 03/31/17 13:15 98.1 86 18 169/82 (111) 100 (Romeo Moore) Physical Examination GENERAL: Awake & alert, readily interacts, affect slightly flat, no distress apparent. HEENT: Normocephalic, atraumatic. NECK: [place] J cervical collar in place. Midline cervical spine at cervicothoracic junction. No JVD. Trachea midline. MUSCULOSKELETAL: TLSO brace in place. Thoracolumbar spine TTP at the thoracolumbar junction. ANDREW ornelas/o difficulty. Extremities NTTP. No evident clubbing or deformity. NEUROLOGICAL: AAOX3. Speech clear & appropriate. Follows simple commands. Sensation to light touch intact to all extremities. Motor strength is 5/5 to all major flexion & extension muscle groups. (Romeo Moore) Lab, Micro, Other Results Recent Impressions Carotid Artery Ultrasound 04/01/17 0000 Signed Impressions: Service Date/Time: Saturday, April 01, 2017 09:41 - CONCLUSION: Negative examination for a hemodynamically significant carotid stenosis. Scattered calcific plaque is evident. Board Certified Radiologist. This report was verified electronically. Thoracic Spine CT 03/31/171246 Signed Impressions: Service Date/Time: Friday, March 31, 2017 13:03 - CONCLUSION: Compression deformity of L1 with approximately 30 this height loss anteriorly. The fracture extends posteriorly through the spinous process at T12. There large flowing osteophytes throughout the entire thoracic spine almost DISH. Amado Pineda MD Pelvis X-Ray 03/31/171246 Signed Impressions: Service Date/Time: Friday, March 31, 2017 12:38 - CONCLUSION: 1. No acute fracture or dislocation. 2. Moderate degenerative change involving the hip joints bilaterally. 3. Degenerative changes throughout the lower lumbar spine. Shubham Hooker MD Lumbar Spine CT 03/31/171246 Signed Impressions: Service Date/Time: Friday, March 31, 2017 13:03 - CONCLUSION: Amado Pineda MD Head CT 03/31/171246 Signed Impressions: Service Date/Time: Friday, March 31, 2017 12:55 - CONCLUSION: 1. No acute intracranial abnormality. 2. Mucosal thickening throughout the maxillary, frontal and ethmoid sinuses. Shubham Hooker MD Chest X-Ray 03/31/171246 Signed Impressions: Service Date/Time: Friday, March 31, 2017 12:38 - CONCLUSION: 1. No acute cardiopulmonary disease. 2. Degenerative changes involving right shoulder. Shubham Hooker MD Chest CT 03/31/171246 Signed Impressions: Service Date/Time: Friday, March 31, 2017 13:03 - CONCLUSION: 9 mm groundglass nodule right lung base. Needs followup imaging based on smoking history and risk factors. L1 compression fracture which is known. Dense coronary atherosclerotic disease Amado Pineda MD Cervical Spine CT 03/31/17 1247 Signed Impressions: Service Date/Time: Friday, March 31, 2017 12:55 - CONCLUSION: 1. Acute fractures involving the bilateral lamina of C2 as well as the posterior spinous processes of C3, C4, C5 and C6. 2. Mild spinal stenoses at C3-4, C4-5 and C5- 6. 3. Severe bilateral foraminal narrowing at C3-4, C4-5, C5-6 and C6-7. 4. Diffuse cervical spondylosis. Shubham Hooker MD Abdomen/Pelvis CT 03/31/17 1247 Signed Impressions: Service Date/Time: Friday, March 31, 2017 13:03 - CONCLUSION: L1 compression fracture with comminuted fragments along the superior endplate. Solid unremarkable. Some trabeculations or bladder wall versus thickening correlate for hematuria. Amado Pineda MD Shoulder X-Ray 03/31/17 0000 Signed Impressions: Service Date/Time: Friday, March 31, 2017 12:38 - CONCLUSION: No acute disease. Shubham Hooker MD Laboratory Tests Test 03/31/17 12:35 03/31/17 17:05 04/01/17 04:45 04/02/17 05:47 White Blood Count 11.3 TH/MM3 9.0 TH/MM3 7.0 TH/MM3 Red Blood Count 4.26 MIL/MM3 3.38 MIL/MM3 3.24 MIL/MM3 Hemoglobin 13.9 GM/DL 11.6 GM/DL 10.9 GM/DL Bedside Hemoglobin 13.3 G/DL Hematocrit 41.2 % 33.1 % 31.6 % Bedside Hematocrit 39.0 % Mean Corpuscular Volume 96.7 FL 97.9 FL 97.4 FL Mean Corpuscular Hemoglobin 32.6 PG 34.3 PG 33.7 PG Mean Corpuscular Hemoglobin Concent 33.7 % 35.0 % 34.6 % Red Cell Distribution Width 12.8 % 12.8 % 12.8 % Platelet Count 203 TH/MM3 140 TH/MM3 119 TH/MM3 Mean Platelet Volume 7.1 FL 7.4 FL 7.1 FL Neutrophils (%) (Auto) 71.1 % 72.8 % 68.3 % Lymphocytes (%) (Auto) 18.1 % 12.8 % 14.6 % Monocytes (%) (Auto) 8.0 % 13.3 % 12.7 % Eosinophils (%) (Auto) 2.2 % 0.9 % 4.2 % Basophils (%) (Auto) 0.6 % 0.2 % 0.2 % Neutrophils # (Auto) 8.0 TH/MM3 6.6 TH/MM3 4.8 TH/MM3 Lymphocytes # (Auto) 2.0 TH/MM3 1.2 TH/MM3 1.0 TH/MM3 Monocytes # (Auto) 0.9 TH/MM3 1.2 TH/MM3 0.9 TH/MM3 Eosinophils # (Auto) 0.2 TH/MM3 0.1 TH/MM3 0.3 TH/MM3 Basophils # (Auto) 0.1 TH/MM3 0.0 TH/MM3 0.0 TH/MM3 CBC Comment DIFF FINAL DIFF FINAL DIFF FINAL Differential Comment Prothrombin Time 12.0 SEC Prothromb Time International Ratio 1.2 RATIO Activated Partial Thromboplast Time 24.7 SEC Bedside Sodium 137 MMOL/L Bedside Potassium 3.8 MMOL/L Bedside Chloride 102 MMOL/L Bedside Blood Urea Nitrogen 15 MG/DL Bedside Creatinine 0.9 MG/DL Bedside Glucose 111 MG/DL Nasal Screen MRSA (PCR) MRSA NOT DETECTED Blood Urea Nitrogen 18 MG/DL 12 MG/DL Creatinine 0.87 MG/DL 0.77 MG/DL Random Glucose 117 MG/DL 96 MG/DL Total Protein 6.5 GM/DL Albumin 3.1 GM/DL Calcium Level 8.4 MG/DL 8.5 MG/DL Alkaline Phosphatase 43 U/L Aspartate Amino Transf (AST/SGOT) 78 U/L Alanine Aminotransferase (ALT/SGPT) 50 U/L Total Bilirubin 1.4 MG/DL Sodium Level 137 MEQ/L 137 MEQ/L Potassium Level 4.4 MEQ/L 4.5 MEQ/L Chloride Level 104 MEQ/L 102 MEQ/L Carbon Dioxide Level 28.9 MEQ/L 30.1 MEQ/L Anion Gap 4 MEQ/L 5 MEQ/L Estimat Glomerular Filtration Rate 76 ML/MIN 100 ML/MIN (Romeo Moore) Medical Decision Making Impression and Plan Impression: 1.) C2 lamina fracture 2.) C2 to C6 spinous process fractures 3.) L1 compression fracture, approximately 25%, canal is well maintained 4.) T12 spinous process fracture 5.) Questionable left C6 facet fracture, nondisplaced 6.) Ankylosing spondylitis from T3 to T12 The patient with more pain today but remains neurologically intact. Reviewed labs for today, slight decrease in haemoglobin. Plan: Primary management per Trauma & Supervisor Diagnostic. Carl Mike cervical collar at all times. TLSO brace when OOB. Mobilise patient w/assistance in collar & brace. PT/OT eval & tx. At present surgery not indicate. Patient may transfer to a regular med/surg floor from NSGY's perspective. (Romeo Moore) Attending Statement The exam, history, and the medical decision-making described in the above note were completed with the assistance of the mid-level provider. I reviewed and agree with the findings presented. I attest that I had a [id number] encounter with the patient on the same day, and personally performed and documented my assessment and findings in the medical record. On my examination of 04/02/17 in the evening the patient is awake and alert. He is sitting partially up in bed with cervical collar and TLSO brace in place. He states that he was able to get out of bed today but with significant pain along the right and left shoulder blade. He does have moderate scapular tenderness on examination today. Upper and lower extremity sensorimotor function is otherwise intact. Discussed with patient He is going to continue therapy He is hopeful that his pain will be improved enough to go home in the next 1 or 2 days. Continuing conservative treatment. Plan follow-up cervical and thoracic spine x-ray in approximately 2 weeks which can be accomplished as an outpatient. (Geronimo Tavarez MD) Romeo Moore Apr 02, 2017 09:59 Geronimo Tavarez MD Apr 03, 2017 00:01
[2017-04-02] MEDS: PANTOPRAZOLE SODIUM 40 MG VIAL IVP SCH (17:00)
[2017-04-02] MEDS: MULTIVITAMIN INJ 10 ML, THIAMINE INJ 100 MG, FOLIC ACID INJ 1 MG in SODIUM CHLORID 0.9%... IV SCH (17:40)
--- NOTE | 2017-04-02 18:04 | HHI.CCPN ---
Subjective Brief History 71-year-old male stenting on the ladder cutting a branch that had them in the face so he fell backwards. Transferred as a trauma alert to [facility] and resuscitated. On arrival patient was awake and alert complaining but some neck pain Full workup completed and final injuries include Acute fractures involving the bilateral lamina of C2 as well as the posterior spinous processes of C3, C4, C5 and C6. C-collar was placed and patient was evaluated by neurosurgery 24 Hour Review/Hospital Course Patient awake alert neurologically fully intact Hemodynamically patient is intact and in sinus rhythm with occasional sinus arrhythmia. At home patient is on Toprol-XL and cessation off beta blockers might have brought on some arrhythmias so we will resumed his before patient goes into A. fib Bilateral breath sounds Abdomen soft active bowel sounds Extremities normal with good peripheral pulses no vascular deficit Neurologically patient is motoric symmetric 04/02/17 Patient is awake alert and oriented Still some pain in the neck and lower back consistent with fractures of C2 and L1 In c-collar with TLSO brace ambulating Hemodynamically stable Bilateral good breath sounds with good pulmonary employment and extension Abdomen soft diet tolerated Neurologically patient is fully intact Is been waiting for bed on the floor since yesterday but remains in the ICU as a border At this point patient is ready for discharge to floor and rehabilitation when bed available Objective Vital Signs Date Time Temp Pulse Resp B/P (MAP) Pulse Ox O2 Delivery O2 Flow Rate FiO2 04/02/17 16:00 87 04/02/17 16:00 98.8 20 114/62 (79) 99 04/02/17 07:00 Room Air Intake and Output 04/02/17 04/02/17 04/03/17 08:00 16:00 00:00 Intake Total 811.2 ml Output Total 300 ml Balance 511.2 ml Result Diagram: 04/02/17 0547 04/02/17 0547 Assessment and Plan Attestation Critical care time not charged patient does not require ICU Level of care Nancy Ozuna MD Apr 02, 2017 18:04
[2017-04-02] MEDS: chlordiazePOXIDE 25 MG CAP PO PRN (20:56)
[2017-04-02] MEDS ORDERED: MAGN30S PO (23:04)
[2017-04-02] MEDS ORDERED: PERI PO (23:04)
[2017-04-02] MEDS: LACTULOSE SYRUP 20 GM/30 ML CUP PO SCH (23:15)
[2017-04-02] MEDS: MAGNESIUM HYDROXIDE SUSP 30 ML CUP PO SCH (23:15)
[2017-04-02] MEDS ORDERED: chlordiazePOXIDE 25 MG CAP PO PRN (23:30)
[2017-04-03] VITALS (9 sets, daily range): BP systolic 98–143; BP diastolic 51–76; PULSE 60–87; RESP 18–21; TEMP 97.9–98.8; O2SAT 95–99
[2017-04-03] MEDS: MORPHINE SULFATE 2 MG/ML INJ IV PUSH PRN (01:13)
[2017-04-03] MEDS: CHLORHEXIDINE GLUCONATE 2 % 1 PACK (2 CLOTHS) TOP SCH (04:00)
--- NOTE | 2017-04-03 07:15 | HHI.FF ---
Face to Face Verification Diagnosis: (1) Compression fx, lumbar spine (2) Cervical spine fracture (3) Alcohol dependence in controlled environment Physical Therapy Order: Evaluate and Treat, Improve ambulation, Strength and gait training Home Health Nursing Order: Medical education Signs/symptoms of disease process Medication education-adverse effect Nursing assessment with vital signs I have seen patient Amado Bryan on 04/03/17. My clinical findings support the need for the requested home health care services because: Ltd mobility - disease progression Deconditioned w/ increased weakness Limited ability to care for self High risk of falls I certify that my clinical findings support that this patient is homebound because: Post-op weakness Unsteady gait/balance Unsafe to leave home unassisted [id number] bed/chair Unable to use public transportation Chiqui James Apr 03, 2017 07:15
--- NOTE | 2017-04-03 08:12 | HHI.PR ---
Neuropsych Emotional Emotional: Intact: Emotional, Anxious/Fearful, Depressed/Sad, Hostile/Resentful , Irritable/Angry/Frustrate, Labile, Constricted/Blunted Behavior Behavior: Intact: Behavior, Coping/Acceptance, Cooperative w/ Treatment, Motivation, Frustration Tolerance/[place], Impulsive/Agitated, Suicidal/Homicidal Risk Cognitive Cognitive: Intact: Cognitive, Attention/Concentration, Confused/Orientation, Insight/Awareness, Judgement/Problem-Solving, Memory Psychosocial Psychosocial: Intact: Psychosocial, Family/Other Adjustment, Realistic Expectation Progress Notes/Response to Tx Contents of Sessions: Adjustment, Level of Consciousness Time with Patient: 15 minutes Premorbid psychological status Premorbid Cognitive, Emotional and Behavioral Status: Stable. The patient is retired. The patient has no prior psychiatric difficulties, as described above. Substance abuse history includes alcohol dependence. Behavioral Reactions of Patient and Family/Support System: Stable. The patients family is experiencing ongoing issues of adjustment given the nature of the injury, and this aspect of recovery will require ongoing monitoring. Emotional/Behavioral Status of Patient and Family/Support System: Stable. Pertinent issues, if appropriate to this patients clinical care, are described in detail above. Maximizing acute care outcome It is recommended that the patient be monitored for emergent behavioral impulsivity as the medical condition evolves particularly as it relates to alcohol withdrawal. This patients neuropathological challenges may limit his rehabilitation potential going forward, and these challenges will require specialized therapeutic skills to maximize outcome. At this point in the recovery process, the patient does have cognitive capacity as the patient is able to understand a situation and its likely consequences, and he is able to manipulate information rationally. Cognitive capacity will be assessed throughout the recovery process. Anticipated Problems Ongoing areas of concern will include behavioral impulsivity, lack of insight and judgment, which is expected to improve with time and treatment. Presently , the patient is awake, alert and following commands. Treatment Plan This clinician will continue to follow with you throughout the course of this patients acute care treatment, and I will be available to meet with the patient s family/support system to facilitate their understanding and the ongoing care of their family member. The goals of neuropsychological intervention shall be both educational and supportive to the family/support system as is deemed clinically appropriate. [facility] Level: VIII:Purposeful-appropriate Impression This is a 71 year old man s/p traumatic injury 2T fall on 03/31/2017. From a neurobehavioral perspective, he is presently at baseline. The concern is development of EtOH withdrawal in the next several day for which trauma team consensus is to start Librium 25 q6H PRN. Diagnosis: (1) Compression fx, lumbar spine Status: Acute (2) Cervical spine fracture Status: Acute (3) Alcohol dependence in controlled environment Progress Note Narrative Ongoing follow-up of patient seen during daily trauma rounds. This is day 3 post injury. He is awake, alert, oriented and following commands. He is compliant with medical directives. He did not require Librium last night, but he is still being monitored for withdrawal symptoms. He is presently [place]. The plan is for him to discharge home with home health. I will continue to follow until he discharges. Problem Qualifiers (1) Compression fx, lumbar spine: Qualified Codes: S32.010A - Wedge compression fracture of first lumbar vertebra , initial encounter for closed fracture (2) Cervical spine fracture: Qualified Codes: S12.9XXA - Fracture of neck, unspecified, initial encounter Skinny Ramsay PhD Apr 03, 2017 8:12 am
[2017-04-03] MEDS: METOPROLOL SUCCINATE 25 MG EXTENDED RELEASE TAB PO SCH (08:39)
[2017-04-03] MEDS: MAGNESIUM HYDROXIDE SUSP 30 ML CUP PO SCH (08:39)
[2017-04-03] MEDS: POLYETHYLENE GLYCOL 17 GM PKG PO SCH (08:39)
[2017-04-03] MEDS: LACTULOSE SYRUP 20 GM/30 ML CUP PO SCH (08:39)
[2017-04-03] MEDS: DOCUSATE SODIUM 50 MG/SENNA 8.6 MG TAB PO SCH ×2 (08:39→08:44)
[2017-04-03] MEDS ORDERED: FAMOTIDINE 20 MG TAB PO SCH (09:00)
--- NOTE | 2017-04-03 09:47 | HHI.NSPN ---
History Chief Complaint: Some neck and back pain. Interval History 03/31: This is a 71-year-old male patient who was trying to cut a branch from a tree when he fell from the ladder on to his buttocks. He reports that his knees bounced up and struck his chin snapping his neck backwards. He had momentary loss of consciousness. He presents with complaints of neck and back pain to [facility]. He underwent evaluation and because of abnormal x-ray, neurosurgery consultation was placed. 04/01: The patient is doing well this morning. He does have some pain to the neck and the lower back. He also endorses a headache. He denies any pain, numbness, tingling or weakness to the extremities or any nausea or dizziness. 04/02: When seen the patient is awake and sitting in the chair talking with a visitor. He states that he is hurting worse today than yesterday which he relates to having been in bed the past three days. He continues to have pain to the neck and back and states the has pain to the sternum which may be fractured. He does have a slight headache. He complains of nausea after drinking the orange juice with his breakfast tray. 04/03: This morning the patient was initially seen with Dr Tavarez. Physical Therapy was at the bedside instructing the patient on how to get the brace on himself. After that he was seen ambulating the hallway with standby assist from Therapy. Later this morning he was seen again by this practitioner. He states that his neck and back pain are better today. He also has some pain to the shoulders. He says he is doing good. He was on the phone talking with his son who is coming down to stay with the patient for a couple weeks to help him. System Review Comments NECK: Some pain to the neck that is better. MUSCULOSKELETAL: Some pain to the back that is better. Some pain to the shoulders. The remainder of the ROS is negative. Exam Results 04/01/17 04/01/17 04/02/17 04/02/17 04/03/17 04/03/17 06:00 18:00 06:00 18:00 06:00 18:00 Intake Total 100 ml 511.2 ml 1291.2 ml 991 ml Output Total 0 ml 1200 ml 725 ml 400 ml Balance 100 ml -688.8 ml 566.2 ml 591 ml Intake Oral 100 ml 780 ml 480 ml IV Total 511.2 ml 511.2 ml 511 ml Output Urine Total 0 ml 1200 ml 725 ml 400 ml Emesis 0 ml 0 ml # Bowel Movements 0 0 0 0 Vital Signs Date Time Temp Pulse Resp B/P (MAP) Pulse Ox O2 Delivery O2 Flow Rate FiO2 04/03/17 07:00 99 Room Air 04/03/17 06:00 69 04/03/17 04:00 97.9 60 18 129/75 (93) 98 04/03/17 04:00 60 04/03/17 02:00 68 04/03/17 00:08 95 04/03/17 00:00 74 04/03/17 00:00 98.7 74 21 98/51 (67) 97 04/02/17 22:00 70 04/02/17 20:00 99.8 78 23 159/79 (105) 95 04/02/17 20:00 78 04/02/17 19:00 95 Room Air 04/02/17 18:00 87 04/02/17 16:00 87 04/02/17 16:00 98.8 87 20 114/62 (79) 99 04/02/17 14:00 71 04/02/17 12:00 70 04/02/17 12:00 98.9 70 15 121/56 (77) 95 04/02/17 10:00 68 04/02/17 08:00 66 04/02/17 08:00 98.8 66 18 126/68 (87) 99 04/02/17 07:00 100 Room Air 04/02/17 06:56 20 04/02/17 06:50 20 04/02/17 06:00 62 04/02/17 05:00 62 04/02/17 05:00 62 16 126/62 (83) 97 04/02/17 04:00 61 04/02/17 04:00 99.0 61 16 107/63 (78) 96 04/02/17 03:00 63 04/02/17 03:00 63 16 110/63 (79) 96 04/02/17 02:00 66 04/02/17 02:00 66 16 112/61 (78) 97 04/02/17 01:00 68 04/02/17 01:00 68 16 98/58 (71) 95 04/02/17 00:00 64 04/02/17 00:00 99.0 64 16 109/57 (74) 96 04/01/17 23:00 71 04/01/17 23:00 71 20 123/60 (81) 95 04/01/17 22:00 70 04/01/17 22:00 70 20 107/63 (78) 97 04/01/17 21:00 72 04/01/17 21:00 72 20 126/66 (86) 97 04/01/17 20:00 Room Air 04/01/17 20:00 68 20 148/77 (100) 95 04/01/17 20:00 68 04/01/17 19:00 98.7 72 20 136/86 (103) 98 04/01/17 19:00 72 04/01/17 18:00 74 04/01/17 16:00 70 04/01/17 16:00 98.7 70 19 153/79 (103) 98 04/01/17 14:00 58 04/01/17 12:00 58 04/01/17 12:00 98.5 58 19 159/78 (105) 95 04/01/17 10:00 66 04/01/17 08:00 98.7 62 17 131/66 (87) 97 04/01/17 08:00 62 04/01/17 07:00 98 Room Air 04/01/17 06:00 63 04/01/17 06:00 63 16 115/55 (75) 98 04/01/17 05:00 62 04/01/17 05:00 62 16 112/62 (79) 95 04/01/17 04:00 98.1 65 16 124/59 (80) 97 04/01/17 04:00 65 04/01/17 03:00 63 16 131/63 (85) 97 04/01/17 03:00 63 04/01/17 02:00 68 16 126/63 (84) 99 04/01/17 02:00 68 04/01/17 01:00 64 16 104/55 (71) 97 04/01/17 01:00 64 04/01/17 00:00 99.1 64 16 94/56 (69) 98 04/01/17 00:00 64 03/31/17 23:00 62 03/31/17 23:00 62 18 90/52 (65) 95 03/31/17 22:00 64 03/31/17 22:00 64 18 91/54 (66) 94 03/31/17 21:00 54 18 110/57 (74) 94 03/31/17 21:00 54 03/31/17 20:00 64 03/31/17 20:00 Room Air 03/31/17 20:00 64 18 104/58 (73) 99 03/31/17 19:00 65 03/31/17 19:00 100.0 65 18 112/63 (79) 96 03/31/17 17:18 20 03/31/17 17:00 98.2 68 20 116/70 (85) 95 03/31/17 16:00 100 Room Air 03/31/17 13:20 100 Room Air 03/31/17 13:15 98.1 86 18 169/82 (111) 100 Physical Examination GENERAL: Awake & alert, readily interacts, affect normal, no distress apparent. HEENT: Normocephalic, atraumatic. NECK: Cross J cervical collar in place. Midline cervical spine mildly tender throughout. No JVD. Trachea midline. MUSCULOSKELETAL: TLSO brace in place. Thoracolumbar spine TTP at the thoracolumbar junction. MORALES w/o difficulty. Extremities NTTP but posterior shoulder mildly tender between scapula. No evident clubbing or deformity. NEUROLOGICAL: AAOX3. Speech clear & appropriate. Follows simple commands. Sensation to light touch intact to all extremities. Motor strength is 5/5 to all major flexion & extension muscle groups. Gait quite steady, has standby assist. Lab, Micro, Other Results Recent Impressions Carotid Artery Ultrasound 04/01/17 0000 Signed Impressions: Service Date/Time: Saturday, April 01, 2017 09:41 - CONCLUSION: Negative examination for a hemodynamically significant carotid stenosis. Scattered calcific plaque is evident. Board Certified Radiologist. This report was verified electronically. Thoracic Spine CT 03/31/17 1247 Signed Impressions: Service Date/Time: Friday, March 31, 2017 13:03 - CONCLUSION: Compression deformity of L1 with approximately 30 this height loss anteriorly. The fracture extends posteriorly through the spinous process at T12. There large flowing osteophytes throughout the entire thoracic spine almost DISH. Amado Pineda MD Pelvis X-Ray 03/31/171246 Signed Impressions: Service Date/Time: Friday, March 31, 2017 12:38 - CONCLUSION: 1. No acute fracture or dislocation. 2. Moderate degenerative change involving the hip joints bilaterally. 3. Degenerative changes throughout the lower lumbar spine. Shubham Hooker MD Lumbar Spine CT 03/31/171246 Signed Impressions: Service Date/Time: Friday, March 31, 2017 13:03 - CONCLUSION: There is a compression fracture of the L1 vertebral body. It has lost a third its original anterior height, measuring 1.9 cm anteriorly. It is 2.8 cm posteriorly. The fracture is comminuted along the superior endplate. The posterior vertebral body margin is intact. There is oblique fracture through the T12 spinous process and a small fracture through the left posterior process of L1. Amado Pineda MD Head CT 03/31/171246 Signed Impressions: Service Date/Time: Friday, March 31, 2017 12:55 - CONCLUSION: 1. No acute intracranial abnormality. 2. Mucosal thickening throughout the maxillary, frontal and ethmoid sinuses. Shubham Hooker MD Chest X-Ray 03/31/171246 Signed Impressions: Service Date/Time: Friday, March 31, 2017 12:38 - CONCLUSION: 1. No acute cardiopulmonary disease. 2. Degenerative changes involving right shoulder. Shubham Hooker MD Chest CT 03/31/171246 Signed Impressions: Service Date/Time: Friday, March 31, 2017 13:03 - CONCLUSION: 9 mm groundglass nodule right lung base. Needs followup imaging based on smoking history and risk factors. L1 compression fracture which is known. Dense coronary atherosclerotic disease Amado Pineda MD Cervical Spine CT 03/31/171246 Signed Impressions: Service Date/Time: Friday, March 31, 2017 12:55 - CONCLUSION: 1. Acute fractures involving the bilateral lamina of C2 as well as the posterior spinous processes of C3, C4, C5 and C6. 2. Mild spinal stenoses at C3-4, C4-5 and C5- 6. 3. Severe bilateral foraminal narrowing at C3-4, C4-5, C5-6 and C6-7. 4. Diffuse cervical spondylosis. Shubham Hooker MD Abdomen/Pelvis CT 03/31/17 1247 Signed Impressions: Service Date/Time: Friday, March 31, 2017 13:03 - CONCLUSION: L1 compression fracture with comminuted fragments along the superior endplate. Solid unremarkable. Some trabeculations or bladder wall versus thickening correlate for hematuria. Amado Pineda MD Laboratory Tests Test 03/31/17 12:35 03/31/17 17:05 04/01/17 04:45 04/02/17 05:47 White Blood Count 11.3 TH/MM3 9.0 TH/MM3 7.0 TH/MM3 Red Blood Count 4.26 MIL/MM3 3.38 MIL/MM3 3.24 MIL/MM3 Hemoglobin 13.9 GM/DL 11.6 GM/DL 10.9 GM/DL Bedside Hemoglobin 13.3 G/DL Hematocrit 41.2 % 33.1 % 31.6 % Bedside Hematocrit 39.0 % Mean Corpuscular Volume 96.7 FL 97.9 FL 97.4 FL Mean Corpuscular Hemoglobin 32.6 PG 34.3 PG 33.7 PG Mean Corpuscular Hemoglobin Concent 33.7 % 35.0 % 34.6 % Red Cell Distribution Width 12.8 % 12.8 % 12.8 % Platelet Count 203 TH/MM3 140 TH/MM3 119 TH/MM3 Mean Platelet Volume 7.1 FL 7.4 FL 7.1 FL Neutrophils (%) (Auto) 71.1 % 72.8 % 68.3 % Lymphocytes (%) (Auto) 18.1 % 12.8 % 14.6 % Monocytes (%) (Auto) 8.0 % 13.3 % 12.7 % Eosinophils (%) (Auto) 2.2 % 0.9 % 4.2 % Basophils (%) (Auto) 0.6 % 0.2 % 0.2 % Neutrophils # (Auto) 8.0 TH/MM3 6.6 TH/MM3 4.8 TH/MM3 Lymphocytes # (Auto) 2.0 TH/MM3 1.2 TH/MM3 1.0 TH/MM3 Monocytes # (Auto) 0.9 TH/MM3 1.2 TH/MM3 0.9 TH/MM3 Eosinophils # (Auto) 0.2 TH/MM3 0.1 TH/MM3 0.3 TH/MM3 Basophils # (Auto) 0.1 TH/MM3 0.0 TH/MM3 0.0 TH/MM3 CBC Comment DIFF FINAL DIFF FINAL DIFF FINAL Differential Comment Prothrombin Time 12.0 SEC Prothromb Time International Ratio 1.2 RATIO Activated Partial Thromboplast Time 24.7 SEC Bedside Sodium 137 MMOL/L Bedside Potassium 3.8 MMOL/L Bedside Chloride 102 MMOL/L Bedside Blood Urea Nitrogen 15 MG/DL Bedside Creatinine 0.9 MG/DL Bedside Glucose 111 MG/DL Nasal Screen MRSA (PCR) MRSA NOT DETECTED Blood Urea Nitrogen 18 MG/DL 12 MG/DL Creatinine 0.87 MG/DL 0.77 MG/DL Random Glucose 117 MG/DL 96 MG/DL Total Protein 6.5 GM/DL Albumin 3.1 GM/DL Calcium Level 8.4 MG/DL 8.5 MG/DL Alkaline Phosphatase 43 U/L Aspartate Amino Transf (AST/SGOT) 78 U/L Alanine Aminotransferase (ALT/SGPT) 50 U/L Total Bilirubin 1.4 MG/DL Sodium Level 137 MEQ/L 137 MEQ/L Potassium Level 4.4 MEQ/L 4.5 MEQ/L Chloride Level 104 MEQ/L 102 MEQ/L Carbon Dioxide Level 28.9 MEQ/L 30.1 MEQ/L Anion Gap 4 MEQ/L 5 MEQ/L Estimat Glomerular Filtration Rate 76 ML/MIN 100 ML/MIN Medical Decision Making Impression and Plan Impression: 1.) C2 lamina fracture 2.) C2 to C6 spinous process fractures 3.) L1 compression fracture, approximately 25%, canal is well maintained 4.) T12 spinous process fracture 5.) Questionable left C6 facet fracture, nondisplaced 6.) Ankylosing spondylitis from T3 to T12 The patient is doing well today and her pain is better controlled. He remains neurologically intact. Plan: Primary management per Trauma & Visitor Services Assistant. Cross J cervical collar at all times. TLSO brace when OOB. Mobilise patient w/assistance in collar & brace. PT/OT eval & tx. At present surgery not indicate. Patient may transfer to a regular med/surg floor from NS's perspective. Romeo Moore Apr 03, 2017 09:47
[2017-04-03] MEDS ORDERED: HYDR-3516 PO (10:08)
--- NOTE | 2017-04-03 13:38 | HHI.CCPN ---
Subjective Brief History 71-year-old male stenting on the ladder cutting a branch that had them in the face so he fell backwards. Transferred as a trauma alert to [facility] and resuscitated. On arrival patient was awake and alert complaining but some neck pain Full workup completed and final injuries include Acute fractures involving the bilateral lamina of C2 as well as the posterior spinous processes of C3, C4, C5 and C6. C-collar was placed and patient was evaluated by neurosurgery 24 Hour Review/Hospital Course Patient awake alert neurologically fully intact Hemodynamically patient is intact and in sinus rhythm with occasional sinus arrhythmia. At home patient is on Toprol-XL and cessation off beta blockers might have brought on some arrhythmias so we will resumed his before patient goes into A. fib Bilateral breath sounds Abdomen soft active bowel sounds Extremities normal with good peripheral pulses no vascular deficit Neurologically patient is motoric symmetric 04/02/17 Patient is awake alert and oriented Still some pain in the neck and lower back consistent with fractures of C2 and L1 In c-collar with TLSO brace ambulating Hemodynamically stable Bilateral good breath sounds with good pulmonary employment and extension Abdomen soft diet tolerated Neurologically patient is fully intact Is been waiting for bed on the floor since yesterday but remains in the ICU as a border At this point patient is ready for discharge to floor and rehabilitation when bed available 04/03/17 Patient doing well this morning Ambulating with ease and able to place and manipulate c-collar and TLSO brace Hemodynamically stable Bilateral good breath sounds and good inspiratory effort Neurologically fully intact No beds on the floor available but at this point patient can be discharged home Discharge patient today Objective Vital Signs Date Time Temp Pulse Resp B/P (MAP) Pulse Ox O2 Delivery O2 Flow Rate FiO2 04/03/17 12:00 76 04/03/17 12:00 98.8 20 134/76 (95) 96 04/03/17 07:00 Room Air Intake and Output 04/03/17 04/03/17 04/04/17 08:00 16:00 00:00 Intake Total 480 ml Output Total 400 ml Balance 80 ml Result Diagram: 04/02/17 0547 04/02/17 0547 Nancy Ozuna MD Apr 03, 2017 13:38
--- NOTE | 2017-04-03 16:41 | HHI.DS ---
Discharge Summary Admission Date Mar 31, 2017 at 14:09 Discharge Date: Apr 03, 2017 Admitting Diagnosis C-spine fracture, L-spine compression fracture (1) Compression fx, lumbar spine ICD Codes: S32.000A - Wedge compression fracture of unspecified lumbar vertebra , initial encounter for closed fracture Diagnosis: Principal Status: Acute (2) Cervical spine fracture ICD Codes: S12.9XXA - Fracture of neck, unspecified, initial encounter Diagnosis: Principal Status: Acute (3) Alcohol dependence in controlled environment ICD Codes: F10.20 - Alcohol dependence, uncomplicated Diagnosis: Principal Brief History Fall. CBC/BMP: 04/02/17 0547 04/02/17 0547 Significant Findings Laboratory Tests Test 03/31/17 17:05 04/01/17 04:45 04/02/17 05:47 Red Blood Count 3.38 MIL/MM3 (4.50-5.90) 3.24 MIL/MM3 (4.50-5.90) Hemoglobin 11.6 GM/DL (13.0-17.0) 10.9 GM/DL (13.0-17.0) Hematocrit 33.1 % (39.0-51.0) 31.6 % (39.0-51.0) Mean Corpuscular Hemoglobin 34.3 PG (27.0-34.0) Platelet Count 140 TH/MM3 (150-450) 119 TH/MM3 (150-450) Neutrophils (%) (Auto) 72.8 % (16.0-70.0) Monocytes (%) (Auto) 13.3 % (0.0-8.0) 12.7 % (0.0-8.0) Monocytes # (Auto) 1.2 TH/MM3 (0-0.9) Random Glucose 117 MG/DL (74-106) Albumin 3.1 GM/DL (3.4-5.0) Calcium Level 8.4 MG/DL (8.5-10.1) Alkaline Phosphatase 43 U/L (45-117) Aspartate Amino Transf (AST/SGOT) 78 U/L (15-37) Total Bilirubin 1.4 MG/DL (0.2-1.0) Anion Gap 4 MEQ/L (5-15) Estimat Glomerular Filtration Rate 76 ML/MIN (>89) Eosinophils (%) (Auto) 4.2 % (0.0-4.0) Imaging Last Impressions Carotid Artery Ultrasound 04/01/17 0000 Signed Impressions: Service Date/Time: Saturday, April 01, 2017 09:41 - CONCLUSION: Negative examination for a hemodynamically significant carotid stenosis. Scattered calcific plaque is evident. Board Certified Radiologist. This report was verified electronically. Thoracic Spine CT 03/31/171246 Signed Impressions: Service Date/Time: Friday, March 31, 2017 13:03 - CONCLUSION: Compression deformity of L1 with approximately 30 this height loss anteriorly. The fracture extends posteriorly through the spinous process at T12. There large flowing osteophytes throughout the entire thoracic spine almost DISH. Amado Pineda MD Pelvis X-Ray 03/31/171246 Signed Impressions: Service Date/Time: Friday, March 31, 2017 12:38 - CONCLUSION: 1. No acute fracture or dislocation. 2. Moderate degenerative change involving the hip joints bilaterally. 3. Degenerative changes throughout the lower lumbar spine. Shubham Hooker MD Lumbar Spine CT 03/31/171246 Signed Impressions: Service Date/Time: Friday, March 31, 2017 13:03 - CONCLUSION: There is a compression fracture of the L1 vertebral body. It has lost a third its original anterior height, measuring 1.9 cm anteriorly. It is 2.8 cm posteriorly. The fracture is comminuted along the superior endplate. The posterior vertebral body margin is intact. There is oblique fracture through the T12 spinous process and a small fracture through the left posterior process of L1. Amado Pineda MD Head CT 03/31/171246 Signed Impressions: Service Date/Time: Friday, March 31, 2017 12:55 - CONCLUSION: 1. No acute intracranial abnormality. 2. Mucosal thickening throughout the maxillary, frontal and ethmoid sinuses. Shubham Hooker MD Chest X-Ray 03/31/171246 Signed Impressions: Service Date/Time: Friday, March 31, 2017 12:38 - CONCLUSION: 1. No acute cardiopulmonary disease. 2. Degenerative changes involving right shoulder. Shubham Hooker MD Chest CT 03/31/171246 Signed Impressions: Service Date/Time: Friday, March 31, 2017 13:03 - CONCLUSION: 9 mm groundglass nodule right lung base. Needs followup imaging based on smoking history and risk factors. L1 compression fracture which is known. Dense coronary atherosclerotic disease Amado Pineda MD Cervical Spine CT 03/31/17 1247 Signed Impressions: Service Date/Time: Friday, March 31, 2017 12:55 - CONCLUSION: 1. Acute fractures involving the bilateral lamina of C2 as well as the posterior spinous processes of C3, C4, C5 and C6. 2. Mild spinal stenoses at C3-4, C4-5 and C5- 6. 3. Severe bilateral foraminal narrowing at C3-4, C4-5, C5-6 and C6-7. 4. Diffuse cervical spondylosis. Shubham Hooker MD Abdomen/Pelvis CT 03/31/17 1247 Signed Impressions: Service Date/Time: Friday, March 31, 2017 13:03 - CONCLUSION: L1 compression fracture with comminuted fragments along the superior endplate. Solid unremarkable. Some trabeculations or bladder wall versus thickening correlate for hematuria. Amado Pineda MD Shoulder X-Ray 03/31/17 0000 Signed Impressions: Service Date/Time: Friday, March 31, 2017 12:38 - CONCLUSION: No acute disease. Shubham Hooker MD PE at Discharge GENERAL: This is a 71-year-old male lying in bed. No distress noted. SKIN: Warm and dry. HEAD: Atraumatic. Normocephalic. EYES: PERRLA ENT: No nasal bleeding or discharge. Mucous membranes pink and moist. NECK: [place] J collar in place. Trachea midline. No JVD. CARDIOVASCULAR: Regular rate and rhythm. RESPIRATORY: No accessory muscle use. Lungs are clear to auscultation. Breath sounds equal bilaterally. No distress or dyspnea. GASTROINTESTINAL: BS + x 4 quads. Abdomen soft, non-tender, nondistended. MUSCULOSKELETAL: Extremities without cyanosis, or edema. + peripheral pulses x 4 extremities. Warm with good capillary refill and sensation. MAEW. NEUROLOGICAL: Awake and alert. Normal speech and pattern. Hospital Course [place]: This is a 71-year-old male who sustained a fall. He fell from a 16ft ladder. + LOC. Confused on scene. On Plavix and ASA at home. INJURIES: C2 fx involving the bilat lamina (non-op) Spinous process fxs C3, C4, C5, C6 L1 compression fx (non-op) T12 spinous process fx Incidental lung nodule and thickened bladder PMHx: CAD, Cardiac stent, HTN, ETOH abuse (6 pack of beer/day) Consults: Neurosurgery. Rehabilitation medicine. Neuropsych. Case management. ____ The patient is now tolerating a po diet. Eating and drinking well. Pain is being managed well with PO pain medications, and patient is being a provided with a script for pain meds upon discharge. (NO driving while taking narcotic pain medication enforced to patient.) We have recommended to patient to continue with stool softeners while taking narcotic pain medications to prevent constipation. Pt has been participating in PT and OT while admitted at [facility] and has been ambulating with their assistance and independently . PT recommends [facility]. Face- to-face completed. No DME needed All follow up appointments have been provided and discussed with the patient. It is recommended that the patient keeps all his follow up appointments for continued recovery. Patient's condition and plan of care discussed with collaborating trauma surgeon. He is agreeable to plan for discharge today. Therefore, the patient is stable to be safely discharged home from a trauma surgery standpoint. Thank you for allowing us to participate in his care. We wish Amado the best in his recovery. C2 fx involving the bilat lamina (non-op) Spinous process fxs C3, C4, C5, C6 L1 compression fx (non-op) T12 spinous process fx Neurosurgery consulted and assisting in management and care Nonoperative at this time [place] J collar at all times TLSO brace when out of bed Support of care Pain management PT and OT ordered Pt Condition on Discharge: Stable Discharge Disposition: Disch w/ Home Health Serv Discharge Instructions DIET: Follow Instructions for: Heart Healthy Diet Activities you can perform: Regular-No Restrictions Activities to Avoid: Concussion Sports, Contact Sports, Lifting/Bending, Prolonged Standing, Strenuous Activity Other Activity Instructions: [place] J collar at all times TLSO brace when OOB Chiqui James Apr 03, 2017 16:41
--- NOTE | 2017-04-04 07:58 | PD.NP.DS ---
Discharge Summary Reason for Referral: The patient is a 71 year old right handed male status post traumatic injury sustained on 03/31/2017. This patient fell from a ladder. On admission, he was determined to have lumbar spine fracture but no TBI sequelae. He has a history of EtOH dependence. He is referred for baseline neurobehavioral status examination per trauma protocol to assess cognitive, behavioral and emotional aspects of the injury and to provide treatment recommendations. He was neurobehaviorally stable and was discharged on day 3. Past Medical History: Please refer to the patient's history and physical for information concerning the patient's past medical, surgical, and psychiatric histories. Education/Learning Hx: The patient completed high school years of education. There is no report of learning difficulties, grade repetitions or behavioral difficulties. The patient is retired. The patient is not . The patient lives in [place], [place]. Premorbid Cognitive, Emotional and Behavioral Status: Stable. The patient is retired. The patient has no prior psychiatric difficulties, as described above. Substance abuse history includes alcohol dependence. Behavioral Reactions of Patient and Family/Support System: Stable. The patients family is experiencing ongoing issues of adjustment given the nature of the injury, and this aspect of recovery will require ongoing monitoring. Emotional/Behavioral Status of Patient and Family/Support System: Stable. Pertinent issues, if appropriate to this patients clinical care, are described in detail above. Treatment Interventions: During the course of their acute care stay, this patient and their family/ support system were provided information concerning the neuropsychological aspects of the injury, education regarding course of recovery, and psychological support in the form of counseling with the person served and the family/support system as documented in the neuropsychology service progress notes, as deemed clinically appropriate. Current, Cognitive, Emotional and Behavioral Status: Stable. This patient has experienced a severe injury, and will be adjusting to significant cognitive, emotional and behavioral challenges going forward. 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 The above listed diagnoses are supported by the following clinical criteria: Mild Neurocognitive Disorder (resolved): This person demonstrates a significant cognitive decline from a previous level of estimated baseline performance in one or more cognitive domains (complex attention, executive functioning, learning and memory, language, perceptual-motor, or social cognition) based on the patients /informants report, further documented by todays testing results, with these cognitive deficits not interfering with the patients independence in everyday activities. Status of Family/Support System Adjustment: Stable. The patients family/ support system will experience ongoing issues of adjustment given the nature of the injury, and this aspect of the patients recovery will require ongoing monitoring. Post Acute Recommendations: It is recommended that the patient continue to be monitored for behavioral impulsivity as they continue to be early in their course of recovery. This patients neuropathological challenges may limit their reintegration into work and family life going forward, and these challenges may require specialized therapeutic skills to maximize outcome. Thank you for the opportunity to assist in this patients care. Skinny Ramsay, Ph.D., ABPP Board Certified in Clinical Neuropsychology [place] [employer] [place] Licensed Psychologist #[id number] Skinny Ramsay PhD Apr 04, 2017 7:58 am
== END 2017-04-03 17:45 | disposition home health service (06) | DRG 552 ==
LOC: NEPI 12:38 → EDBD 14:09 → NEDA 14:09 → N03A 16:53
PROVIDERS: ADMIT Surgery; ATTEND Surgery
DX: S12.100A Unspecified displaced fracture of second cervical vertebra, initial encounter for closed fracture (principal); S22.089A Unspecified fracture of T11-T12 vertebra, initial encounter for closed fracture; S32.010A Wedge compression fracture of first lumbar vertebra, initial encounter for closed fracture; S12.200 Unspecified displaced fracture of third cervical vertebra; S06.9X9A Unspecified intracranial injury with loss of consciousness of unspecified duration, initial encounter; I49.8 Other specified cardiac arrhythmias; I10 Essential (primary) hypertension; S12.500A Unspecified displaced fracture of sixth cervical vertebra, initial encounter for closed fracture; S12.300A Unspecified displaced fracture of fourth cervical vertebra, initial encounter for closed fracture; S12.400A Unspecified displaced fracture of fifth cervical vertebra, initial encounter for closed fracture; R91.1 Solitary pulmonary nodule; M45.4 Ankylosing spondylitis of thoracic region; I25.10 Atherosclerotic heart disease of native coronary artery without angina pectoris; F10.20 Alcohol dependence, uncomplicated; W11.XXXA Fall on and from ladder, initial encounter; Y92.007 Garden or yard of unspecified non-institutional (private) residence as the place of occurrence of the external cause; Z95.5 Presence of coronary angioplasty implant and graft
CPT/HCPCS: 70450; 71010; 71260; 72125; 72129; 72132; 72170; 73020; 74177; 80048; 80053; 82435; 82565; 82947; 84132; 84295; 84520; 85025; 85610; 85730; 86850; 86900; 86901; 87641; 93005; 93880; 94150; 96374; 96376; 99291; C9113; G0390; J2270; J2405; J3411; J7040; L0150; L0172; L0200; L0484; Q9967